=== PATIENT | female | born 1960 | race Caucasian/White ===

== ENCOUNTER 2017-05-26 18:27 | Inpatient (IN) | payer BC, OTHER ==
[~2017-05-26] VITALS: Ht 165.1 cm; Wt 85.8 kg
[2017-05-26] MEDS ORDERED: OMEP40CA2 PO (18:39)
[2017-05-26] MEDS ORDERED: LORA1TAB12 PO (18:39)
[2017-05-26] MEDS ORDERED: HYDR200T3 PO (18:39)
[2017-05-26] MEDS ORDERED: SERT-138 PO (18:39)
[2017-05-26] MEDS ORDERED: ROSU20TA PO (18:39)
[2017-05-26] MEDS ORDERED: ONDANSETRON 4MG/2ML VIAL (J2405) IV ONE (19:45)
[2017-05-26] MEDS ORDERED: NS 1,000 ML IV ONE (19:45)
[2017-05-26] MEDS: MORPHINE 4 MG/ML 1ML SYRINGE IV PRN ×2 (19:50→22:34)
[2017-05-26 20:01] LABS: BASO # 0.1 10^3/uL (0.0-0.2); BASO % 0.4 % (0.0-1.0); EOS # 0.1 10^3/uL (0.0-0.50); EOS % 0.3 % (0.0-3.0); IMMATURE GRANULOCYTE % 0.5 % (0-0); LYMPH # 2.5 10^3/uL (1.5-4.5); LYMPH % 13.6 % (24.0-44.0); MEAN CORPUSCULAR HEMOGLOBIN 29.3 pg (27.0-33.0); MEAN CORPUSCULAR HGB CONC 33.9 g/dl (32.0-36.5); MEAN CORPUSCULAR VOLUME 86.5 fl (80.0-96.0); MONO # 0.6 10^3/uL (0.0-0.8); MONO % 3.4 % (0.0-5.0); NEUTROPHILS # 15.1 10^3/uL (1.8-7.7); NEUTROPHILS % 81.8 % (36.0-66.0); PLATELET COUNT, AUTOMATED 280 10^3/uL (150-450); RED CELL DISTRIBUTION WIDTH 12.8 % (11.5-14.5); WHITE BLOOD COUNT 18.4 10^3/uL (4.0-10.0)
[2017-05-26 20:25] LABS: ALBUMIN 4.6 GM/DL (3.2-5.2); ALBUMIN/GLOBULIN RATIO 1.48 (1.00-1.93); ALKALINE PHOSPHATASE 117 U/L (45-117); ALT/SGPT 25 U/L (12-78); ANION GAP 8 MEQ/L (8-16); AST/SGOT 15 U/L (7-37); BILIRUBIN,DIRECT < 0.1 MG/DL (0.0-0.2); BILIRUBIN,TOTAL 0.4 MG/DL (0.2-1.0); BLOOD UREA NITROGEN 17 MG/DL (7-18); CALCIUM LEVEL 9.4 MG/DL (8.5-10.1); CARBON DIOXIDE LEVEL 27 MEQ/L (21-32); CHLORIDE LEVEL 102 MEQ/L (98-107); GLOMERULAR FILTRATION RATE > 60.0 (>51); GLUCOSE, FASTING 156 MG/DL (70-105); SODIUM LEVEL 137 MEQ/L (136-145); TOTAL PROTEIN 7.7 GM/DL (6.4-8.2)
[2017-05-26] MEDS ORDERED: metroNIDAZOLE 500 MG in APPROPRIATE DILUENT 1 EA IV ONE (22:15)
[2017-05-26] MEDS ORDERED: CIPROFLOXACIN 400 MG in APPROPRIATE DILUENT 1 EA IV ONE (22:15)
[2017-05-26] MEDS ORDERED: ACETAMINOPHEN TAB 650MG DOSE (2X325MG) PO PRN (22:30)
[2017-05-26] MEDS ORDERED: ONDANSETRON 4MG/2ML VIAL (J2405) IV PRN (22:30)
[2017-05-26] MEDS ORDERED: ADDE30CA3 PO (22:35)
[2017-05-27] VITALS: BP 122/67
[2017-05-27] MEDS: LR 1,000 ML IV SCH ×3 (01:33→19:27)
[2017-05-27] MEDS: NORCO, ANEXSIA 5/325MG TABLET (HYDROcodone/ACETAMINOPHEN) PO PRN ×4 (01:35→19:31)
[2017-05-27] MEDS: metroNIDAZOLE 500 MG in APPROPRIATE DILUENT 1 EA IV SCH ×3 (05:45→21:40)
[2017-05-27 06:54] LABS: BASO % 0.5 % (0.0-1.0); EOS # 0.2 10^3/uL (0.0-0.50); EOS % 1.7 % (0.0-3.0); IMMATURE GRANULOCYTE % 0.2 % (0-0); LYMPH # 3.1 10^3/uL (1.5-4.5); LYMPH % 35.2 % (24.0-44.0); MEAN CORPUSCULAR HGB CONC 33.1 g/dl (32.0-36.5); MEAN CORPUSCULAR VOLUME 87.7 fl (80.0-96.0); MONO # 0.7 10^3/uL (0.0-0.8); MONO % 7.6 % (0.0-5.0); NEUTROPHILS # 4.8 10^3/uL (1.8-7.7); NEUTROPHILS % 54.8 % (36.0-66.0); PLATELET COUNT, AUTOMATED 226 10^3/uL (150-450); RED CELL DISTRIBUTION WIDTH 12.9 % (11.5-14.5); WHITE BLOOD COUNT 8.8 10^3/uL (4.0-10.0)
[2017-05-27 07:20] LABS: ALBUMIN/GLOBULIN RATIO 1.42 (1.00-1.93); ALKALINE PHOSPHATASE 90 U/L (45-117); ALT/SGPT 20 U/L (12-78); ANION GAP 7 MEQ/L (8-16); AST/SGOT 12 U/L (7-37); BILIRUBIN,TOTAL 0.4 MG/DL (0.2-1.0); BLOOD UREA NITROGEN 11 MG/DL (7-18); CALCIUM LEVEL 8.2 MG/DL (8.5-10.1); CARBON DIOXIDE LEVEL 29 MEQ/L (21-32); CHLORIDE LEVEL 107 MEQ/L (98-107); GLOMERULAR FILTRATION RATE > 60.0 (>51); GLUCOSE, FASTING 99 MG/DL (70-105); POTASSIUM SERUM 3.9 MEQ/L (3.5-5.1); SODIUM LEVEL 143 MEQ/L (136-145)
[2017-05-27 07:44] LABS: ALBUMIN 3.4 GM/DL (3.2-5.2)
[2017-05-27 07:45] LABS: TOTAL PROTEIN 5.8 GM/DL (6.4-8.2)
[2017-05-27 08:00] VITALS: BP 99/50
[2017-05-27] MEDS: SENOKOT S TAB PO SCH ×2 (08:33→21:40)
[2017-05-27] MEDS: PANTOPRAZOLE 40MG INJ (PROTONIX) (C9113) IV SCH (08:33)
[2017-05-27] MEDS: ENOXAPARIN 40 MG/0.4 ML SYRINGE (J1650) SC SCH (08:35)
[2017-05-27] MEDS: CIPROFLOXACIN 400 MG in APPROPRIATE DILUENT 1 EA IV SCH ×2 (11:33→23:47)
[2017-05-27] MEDS ORDERED: LORazepam 1 MG TAB PO PRN (12:00)
[2017-05-27] MEDS: PROMETHAZINE INJ 25 MG/ML VIAL (J2550) IV PRN ×2 (12:47→21:46)
[2017-05-27] MEDS ORDERED: SERTRALINE HCL 50 MG TAB PO ONE (13:00)
[2017-05-27] MEDS: ROSUVASTATIN 10 MG TAB (CRESTOR) PO SCH (14:20)
[2017-05-27] MEDS: HYDROXYCHLOROQUINE 200 MG TAB PO SCH ×2 (14:21→21:40)
--- NOTE | 2017-05-27 15:07 | HPEPDOC ---
General Surgery H&P Date of Admission May 26, 2017 Attending Physician: VOLODYMYR JARRETT MD History and Physical CHIEF COMPLAINT: Right upper quadrant pain HISTORY OF PRESENT ILLNESS: Patient presents to the emergency department with one-day history of ongoing epigastric and later on right upper quadrant pain and discomfort with nausea and vomiting. Patient reports that she has had intermittent episodes of nausea, vomiting, diarrhea for the past year at least and previous studies have shown cholelithiasis for which she was seen by a surgeon that suggested watchful waiting at that time as her symptoms, the surgeon felt was not of definite biliary origin. This episode started about noon and Monday. She felt well when she woke up and started having mid epigastric abdominal discomfort that later localized and became sharp over the right upper quadrant area, followed by nausea and about 2-3 episodes of vomiting. Patient also reports passage of loose stools. Severity of the pain is worse than her usual attacks. She presented to the emergency department and was worked up and is highly suspected to have cholecystitis. Us and asked to attend to her.. HOME MEDICATIONS: Please see below. PAST MEDICAL HISTORY: Systemic lupus erythematosus Obstructive sleep apnea Hypertension Attention deficit disorder Gastroesophageal reflux disease Low back pain Depression Anxiety Hypercholesterolemia PAST SURGICAL HISTORY: Knee surgery Finger surgery Sinus surgery PERSONAL/SOCIAL HISTORY: Former smoker, denies significant, daily alcohol use, denies recreational drug use REVIEW OF SYSTEMS: GENERAL: Denies chills, fatigue, fever, weight gain and weight loss. HEENT: Denies blurred vision and double vision. Denies ear symptoms. Denies hoarseness. NECK: Denies any neck pain. CARDIOVASCULAR: Denies chest pain and palpitations. MUSCULOSKELETAL: Reports chronic history of SLE, main manifestation his small joint pain. SKIN: Denies rash. NEUROLOGIC: Denies headache, stroke and transient ischemic attack. PSYCHIATRIC: Reports anxiety and depression. Reports ADD on medication ENDOCRINE: Denies thyroid disease. HEMATOLOGY/ONCOLOGY: Denies any bleeding or clotting disorder. HEART: Denies any chest pains, palpitations, paroxysmal dyspnea, orthopnea. PULMONARY: Denies chronic cough, dyspnea and wheezing. GASTROINTESTINAL: Denies rectal bleeding, family history of colon cancer, constipation, diarrhea, dysphagia, heartburn and jaundice. She has had previous colonoscopy for colorectal cancer screening.Found to have some diverticulosis GENITOURINARY: Denies dysuria, frequency, hematuria and nocturia. ENDOCRINE: Denies polydipsia, polyphagia, polyuria, heat or cold intolerance. INFECTIOUS: Denies any recent upper respiratory tract infection, UTI, need for use of antibiotics. NUTRITION: Reports good appetite. PHYSICAL EXAMINATION: VITAL SIGNS: Please see below. GENERAL APPEARANCE: Mildly uncomfortable especially with moving, otherwise does not seem to be in any acute distress. HEENT: Normocephalic, atraumatic. [place] palpebral conjunctivae. Anicteric sclerae. Lips moist. CHEST: No chest wall abnormalities. Normal respiratory motion/effort. NECK: Supple. No thyromegaly. No lymphadenopathies. LUNGS: Lung sounds are clear to auscultation bilaterally. No wheezing appreciated. HEART: No chest wall abnormalities. Heart rate and rhythm are regular with no murmurs. ABDOMEN: Soft, round, minimally distended abdomen with mild tenderness on the epigastric and right upper quadrant area with mild guarding. Nontender anywhere else. No surgical scars. No umbilical or groin herniations. No masses appreciated. SKIN: Warm, moist. EXTREMITIES: Extremities have no deformities. No edema identified. NEUROLOGICAL: Awake, alert, oriented ANCILLARIES: LABORATORY DATA: Please see below. MICROBIOLOGY: Please see below. IMAGING: Right upper quadrant ultrasound Cholelithiasis, mild gallbladder wall thickening, stone at the neck of the gallbladder IMPRESSION AND PLAN: Cholelithiasis with acute cholecystitis She has significant pain lasting more than 6 hours, he has a ptosis to 18,000 and tenderness over the right upper quadrant area consistent with acute cholecystitis. She was admitted in the emergency room and started on IV antibiotics and place him I'll rest with improvement of her symptoms. She also does give a history of chronic intermittent epigastric pain consistent with biliary colic type pain. At this time as she has improved a spoke to her about her options. We can schedule her for laparoscopic cholecystectomy during this admission or discharge her when she is able to tolerate food and perform interval cholecystectomy usually within 3-6 weeks. After modeling the pros and cons of each decision, patient has agreed to undergo cholecystectomy during this admission. He will start her on clear liquids in the morning and advance this as tolerated and plan for cholecystectomy and Monday. Vital Signs Vital Signs Date Time Temp Pulse Resp B/P (MAP) Pulse Ox O2 Delivery O2 Flow Rate FiO2 05/27/17 12:43 18 05/27/17 08:00 98.9 90 99/50 (66) 100 Room Air I&Os I&O- Last 24 Hours up to 6 AM 05/28/17 06:00 Intake Total 600 ml Output Total 600 ml Balance 0 ml Laboratory Data Labs 24H Laboratory Tests 2 05/26/17 19:52: Immature Granulocyte % (Auto) 0.5H, White Blood Count 18.4H, Red Blood Count 5.05, Hemoglobin 14.8, Hematocrit 43.7, Mean Corpuscular Volume 86.5, Mean Corpuscular Hemoglobin 29.3, Mean Corpuscular Hemoglobin Concent 33.9, Red Cell Distribution Width 12.8, Platelet Count 280, Neutrophils (%) (Auto) 81.8H, Lymphocytes (%) (Auto) 13.6L, Monocytes (%) (Auto) 3.4, Eosinophils (%) (Auto) 0.3, Basophils (%) (Auto) 0.4, Neutrophils # (Auto) 15.1H, Lymphocytes # (Auto) 2.5, Monocytes # (Auto) 0.6, Eosinophils # (Auto) 0.1, Basophils # (Auto) 0.1, Immature Granulocyte # (Auto) 0.1H, Nucleated Red Blood Cells % (auto) 0.0, Anion Gap 8, Glomerular Filtration Rate > 60.0, Calcium Level 9.4, Aspartate Amino Transf (AST/SGOT) 15, Alanine Aminotransferase (ALT/SGPT) 25, Alkaline Phosphatase 117, Total Bilirubin 0.4, Direct Bilirubin < 0.1, Total Protein 7.7 , Albumin 4.6, Albumin/Globulin Ratio 1.48, Lipase 218 05/26/17 21:19: Urine Appearance CLEAR, Urine Color YELLOW, Urine pH 6.0, Urine Specific [place] 1.012, Urine Protein NEGATIVE, Urine Glucose (UA) NEGATIVE, Urine Ketones NEGATIVE, Urine Urobilinogen 0.2, Urine Bilirubin NEGATIVE, Urine Leukocyte Esterase TRACEH, Urine Blood NEGATIVE, Urine Nitrite NEGATIVE, Urine WBC (Auto) 2, Urine RBC (Auto) 2, Urine Hyaline Casts (Auto) 0, Urine Bacteria ( Auto) NEGATIVE, Urine Squamous Epithelial Cells 0, Urine Sperm (Auto) 05/27/17 06:27: Immature Granulocyte % (Auto) 0.2H, White Blood Count 8.8, Red Blood Count 4.31 , Hemoglobin 12.5#, Hematocrit 37.8, Mean Corpuscular Volume 87.7, Mean Corpuscular Hemoglobin 29.0, Mean Corpuscular Hemoglobin Concent 33.1, Red Cell Distribution Width 12.9, Platelet Count 226, Neutrophils (%) (Auto) 54.8, Lymphocytes (%) (Auto) 35.2, Monocytes (%) (Auto) 7.6H, Eosinophils (%) (Auto) 1.7, Basophils (%) (Auto) 0.5, Neutrophils # (Auto) 4.8, Lymphocytes # (Auto) 3.1, Monocytes # (Auto) 0.7, Eosinophils # (Auto) 0.2, Basophils # (Auto) 0.0, Immature Granulocyte # (Auto) 0.0, Nucleated Red Blood Cells % (auto) 0.0, Anion Gap 7L, Glomerular Filtration Rate > 60.0, Calcium Level 8.2L, Aspartate Amino Transf (AST/SGOT) 12, Alanine Aminotransferase (ALT/SGPT) 20, Alkaline Phosphatase 90, Total Bilirubin 0.4, Total Protein 5.8#L, Albumin 3.4#, Albumin/ Globulin Ratio 1.42, Blood Urea Nitrogen 11, Creatinine 0.70, Sodium Level 143, Potassium Level 3.9, Chloride Level 107, Carbon Dioxide Level 29 CBC/BMP Laboratory Tests 05/26/17 19:52 Red Blood Count 5.05, Mean Corpuscular Volume 86.5, Mean Corpuscular Hemoglobin 29.3, Mean Corpuscular Hemoglobin Concent 33.9, Red Cell Distribution Width 12.8 , Neutrophils (%) (Auto) 81.8 H, Lymphocytes (%) (Auto) 13.6 L, Monocytes (%) ( Auto) 3.4, Eosinophils (%) (Auto) 0.3, Basophils (%) (Auto) 0.4, Neutrophils # ( Auto) 15.1 H, Lymphocytes # (Auto) 2.5, Monocytes # (Auto) 0.6, Eosinophils # ( Auto) 0.1, Basophils # (Auto) 0.1 05/27/17 06:27 Red Blood Count 4.31, Mean Corpuscular Volume 87.7, Mean Corpuscular Hemoglobin 29.0, Mean Corpuscular Hemoglobin Concent 33.1, Red Cell Distribution Width 12.9 , Neutrophils (%) (Auto) 54.8, Lymphocytes (%) (Auto) 35.2, Monocytes (%) (Auto ) 7.6 H, Eosinophils (%) (Auto) 1.7, Basophils (%) (Auto) 0.5, Neutrophils # ( Auto) 4.8, Lymphocytes # (Auto) 3.1, Monocytes # (Auto) 0.7, Eosinophils # (Auto ) 0.2, Basophils # (Auto) 0.0, Calcium Level 8.2 L, Aspartate Amino Transf (AST/ SGOT) 12, Alanine Aminotransferase (ALT/SGPT) 20, Alkaline Phosphatase 90, Total Bilirubin 0.4, Total Protein 5.8 #L, Albumin 3.4 # Home Medications Scheduled Amphetamine/Dextroamphetamine (Adderall Xr 30 mg) 1 Cap Cap, 1 CAP PO DAILY, ( Reported) Hydroxychloroquine Sulfate (Hydroxychloroquine Sulfat) 200 Mg Tab, 200 MG PO BID , (Reported) Omeprazole (Omeprazole) 40 Mg Cap, 40 MG PO DAILY, (Reported) Rosuvastatin Calcium (Rosuvastatin Calcium) 20 Mg Tab, 20 MG PO DAILY, (Reported ) Sertraline HCl (Sertraline HCl) 100 Mg Tab, 150 MG PO DAILY, (Reported) Scheduled PRN Lorazepam (Lorazepam) 1 Mg Tab, 1 MG PO Q12H PRN for ANXIETY, (Reported) Allergies Coded Allergies: Naproxen (Verified Allergy, Unknown, 05/26/17) Penicillins (Unverified Allergy, Unknown, SWELLING, 10/23/12) VOLODYMYR JARRETT MD May 27, 2017 15:07
[2017-05-27 16:00] VITALS: BP 124/67
[2017-05-27 20:30] VITALS: BP 131/61
[2017-05-27 23:58] VITALS: BP 97/55
[2017-05-28] MEDS: NORCO, ANEXSIA 5/325MG TABLET (HYDROcodone/ACETAMINOPHEN) PO PRN (04:09)
[2017-05-28] MEDS: metroNIDAZOLE 500 MG in APPROPRIATE DILUENT 1 EA IV SCH ×3 (05:23→23:16)
[2017-05-28 06:52] LABS: BASO # 0.1 10^3/uL (0.0-0.2); BASO % 0.8 % (0.0-1.0); EOS # 0.2 10^3/uL (0.0-0.50); EOS % 2.7 % (0.0-3.0); IMMATURE GRANULOCYTE % 0.2 % (0-0); LYMPH # 2.8 10^3/uL (1.5-4.5); LYMPH % 42.8 % (24.0-44.0); MEAN CORPUSCULAR HEMOGLOBIN 28.9 pg (27.0-33.0); MEAN CORPUSCULAR HGB CONC 32.4 g/dl (32.0-36.5); MEAN CORPUSCULAR VOLUME 89.2 fl (80.0-96.0); MONO # 0.5 10^3/uL (0.0-0.8); MONO % 6.8 % (0.0-5.0); NEUTROPHILS # 3.1 10^3/uL (1.8-7.7); NEUTROPHILS % 46.7 % (36.0-66.0); PLATELET COUNT, AUTOMATED 218 10^3/uL (150-450); RED CELL DISTRIBUTION WIDTH 13.1 % (11.5-14.5); WHITE BLOOD COUNT 6.6 10^3/uL (4.0-10.0)
[2017-05-28 07:27] LABS: ALBUMIN 3.2 GM/DL (3.2-5.2); ALBUMIN/GLOBULIN RATIO 1.33 (1.00-1.93); ALKALINE PHOSPHATASE 89 U/L (45-117); ALT/SGPT 20 U/L (12-78); ANION GAP 7 MEQ/L (8-16); AST/SGOT 9 U/L (7-37); BILIRUBIN,TOTAL 0.4 MG/DL (0.2-1.0); BLOOD UREA NITROGEN 7 MG/DL (7-18); CALCIUM LEVEL 8.2 MG/DL (8.5-10.1); CARBON DIOXIDE LEVEL 29 MEQ/L (21-32); CHLORIDE LEVEL 109 MEQ/L (98-107); CREATININE FOR GFR 0.65 MG/DL (0.55-1.02); GLOMERULAR FILTRATION RATE > 60.0 (>51); GLUCOSE, FASTING 88 MG/DL (70-105); POTASSIUM SERUM 3.8 MEQ/L (3.5-5.1); SODIUM LEVEL 145 MEQ/L (136-145); TOTAL PROTEIN 5.6 GM/DL (6.4-8.2)
[2017-05-28 08:00] VITALS: BP 134/82
[2017-05-28] MEDS: SENOKOT S TAB PO SCH ×2 (08:35→20:21)
[2017-05-28] MEDS: ROSUVASTATIN 10 MG TAB (CRESTOR) PO SCH (08:35)
[2017-05-28] MEDS: LORazepam 0.5 MG TAB PO PRN ×2 (08:35→23:44)
[2017-05-28] MEDS: SERTRALINE HCL 50 MG TAB PO SCH (08:35)
[2017-05-28] MEDS: HYDROXYCHLOROQUINE 200 MG TAB PO SCH ×2 (08:35→20:21)
[2017-05-28] MEDS: ENOXAPARIN 40 MG/0.4 ML SYRINGE (J1650) SC SCH (08:36)
[2017-05-28] MEDS: PANTOPRAZOLE 40MG INJ (PROTONIX) (C9113) IV SCH (08:36)
[2017-05-28] MEDS: CIPROFLOXACIN 400 MG in APPROPRIATE DILUENT 1 EA IV SCH (10:54)
[2017-05-28 16:00] VITALS: BP 114/58
[2017-05-28 20:00] VITALS: BP 123/63
[2017-05-28] MEDS: ADDERALL 30 MG PO SCH (20:20)
[2017-05-29] VITALS (8 sets, daily range): BP systolic 112–157; BP diastolic 58–88
[2017-05-29] MEDS: CIPROFLOXACIN 400 MG in APPROPRIATE DILUENT 1 EA IV SCH ×2 (01:23→11:49)
[2017-05-29] MEDS: NORCO, ANEXSIA 5/325MG TABLET (HYDROcodone/ACETAMINOPHEN) PO PRN ×3 (01:58→23:37)
[2017-05-29] MEDS: metroNIDAZOLE 500 MG in APPROPRIATE DILUENT 1 EA IV SCH ×2 (06:16→14:06)
[2017-05-29 07:03] LABS: BASO % 0.6 % (0.0-1.0); EOS # 0.2 10^3/uL (0.0-0.50); EOS % 3.2 % (0.0-3.0); IMMATURE GRANULOCYTE % 0.2 % (0-0); LYMPH # 2.9 10^3/uL (1.5-4.5); LYMPH % 44.6 % (24.0-44.0); MEAN CORPUSCULAR HEMOGLOBIN 29.5 pg (27.0-33.0); MEAN CORPUSCULAR HGB CONC 33.4 g/dl (32.0-36.5); MEAN CORPUSCULAR VOLUME 88.3 fl (80.0-96.0); MONO # 0.5 10^3/uL (0.0-0.8); MONO % 7.2 % (0.0-5.0); NEUTROPHILS # 2.9 10^3/uL (1.8-7.7); NEUTROPHILS % 44.2 % (36.0-66.0); PLATELET COUNT, AUTOMATED 227 10^3/uL (150-450); RED CELL DISTRIBUTION WIDTH 12.9 % (11.5-14.5); WHITE BLOOD COUNT 6.5 10^3/uL (4.0-10.0)
[2017-05-29 07:32] LABS: ALBUMIN 3.3 GM/DL (3.2-5.2); ALBUMIN/GLOBULIN RATIO 1.27 (1.00-1.93); ALKALINE PHOSPHATASE 88 U/L (45-117); ALT/SGPT 20 U/L (12-78); ANION GAP 7 MEQ/L (8-16); AST/SGOT 10 U/L (7-37); BILIRUBIN,TOTAL 0.4 MG/DL (0.2-1.0); BLOOD UREA NITROGEN 10 MG/DL (7-18); CARBON DIOXIDE LEVEL 30 MEQ/L (21-32); CHLORIDE LEVEL 108 MEQ/L (98-107); GLOMERULAR FILTRATION RATE > 60.0 (>51); GLUCOSE, FASTING 92 MG/DL (70-105); POTASSIUM SERUM 3.7 MEQ/L (3.5-5.1); SODIUM LEVEL 145 MEQ/L (136-145); TOTAL PROTEIN 5.9 GM/DL (6.4-8.2)
--- NOTE | 2017-05-29 07:52 | REPUSA ---
Ultrasound of the gallbladder Clinical history: pain. Findings: The pancreas is limited in visualization secondary to overlying bowel gas, but appears grossly unrema rkable. The liver demonstrates uniform echotexture and echogenicity, with no mass lesions. The gallbl adder demonstrates at least three mobile gallstones. There is no gallbladder wall thickening. The com mon bile duct measures 4 mm and is within normal limits. There is no ascites. The right kidney measur es 11 cm in length and is unremarkable. Impression: No acute findings. Cholelithiasis, without evidence of acute cholecystitis.
[2017-05-29] MEDS: ADDERALL 30 MG PO SCH (08:46)
[2017-05-29] MEDS: HYDROXYCHLOROQUINE 200 MG TAB PO SCH (08:47)
[2017-05-29] MEDS: ROSUVASTATIN 10 MG TAB (CRESTOR) PO SCH (08:47)
[2017-05-29] MEDS: SERTRALINE HCL 50 MG TAB PO SCH (08:48)
[2017-05-29] MEDS: SENOKOT S TAB PO SCH ×2 (08:48→20:13)
[2017-05-29] MEDS: PANTOPRAZOLE 40MG INJ (PROTONIX) (C9113) IV SCH (08:49)
[2017-05-29] MEDS: ENOXAPARIN 40 MG/0.4 ML SYRINGE (J1650) SC SCH (08:51)
[2017-05-29] MEDS ORDERED: BUPIVACAINE HCL 0.25% 30 ML VIAL As Ordered ONE (14:00)
[2017-05-29] MEDS ORDERED: LIDOCAINE 1% SDV INJ 30 ML VIAL As Ordered ONE (14:00)
[2017-05-29] MEDS ORDERED: fentaNYL 100 MCG/2 ML INJECTION (J3010) As Ordered ONE ×2 (15:56→17:18)
[2017-05-29] MEDS ORDERED: PROPOFOL 200 MG/20 ML VIAL As Ordered ONE (15:56)
[2017-05-29] MEDS ORDERED: dexameTHASONE 4 MG/ML 1ML VIAL (J1100) As Ordered ONE (15:56)
[2017-05-29] MEDS ORDERED: ROCURONIUM BROMIDE 50 MG/5 ML VIAL As Ordered ONE (15:56)
[2017-05-29] MEDS ORDERED: MIDAZOLAM INJ 2 MG/2 ML VIAL (J2250) As Ordered ONE (15:56)
[2017-05-29] MEDS ORDERED: METOCLOPRAMIDE INJ 10MG/2ML VIAL (J2765) As Ordered ONE (15:56)
[2017-05-29] MEDS ORDERED: HYDROmorphone HCL 2 MG/ML 1ML VIAL (J1170) As Ordered ONE (16:09)
[2017-05-29] MEDS ORDERED: LIDOCAINE PRES-FREE 2% 10ML AMP As Ordered ONE (16:11)
[2017-05-29] MEDS ORDERED: NEOSTIGMINE 10 MG/10 ML VIAL (J2710) As Ordered ONE ×2 (16:13→17:01)
[2017-05-29] MEDS ORDERED: GLYCOPYRROLATE INJ 0.2 MG/ML 2 ML VIAL As Ordered ONE ×2 (16:13→17:01)
--- NOTE | 2017-05-29 17:14 | ROOPDOC ---
[facility] Report Of Operation Report of Operation DATE OF PROCEDURE: 05/29/17 PREPROCEDURE DIAGNOSES: Acute Cholecystitis. POSTPROCEDURE DIAGNOSES: Acute Cholecystitis. PROCEDURE: Laparoscopic Cholecystectomy. SURGEON: Tej Shipman MD [employer]INTENANCE TECHNICIAN: ANESTHESIA: general anesthesia. ESTIMATED BLOOD LOSS: Approximately 50 mL. COMPLICATIONS: slight capsular tear on medial side of gallbladder bed, surgicel and krista left at liver bed. REMARKS: 56 F with sudden onset of abdominal pain over right upper quadrant area noted to have cholecystitis on US. PROCEDURE NOTE: distended gallbladder, mild pericholecystic edema of the wall.. DESCRIPTION OF PROCEDURE: Patient has been receiving ciprofloxacin and metronidazole IV on scheduled doses since admission for acute cholecystitis. She was brought to the operating room, laid supine on the table, compression boots placed for DVT prophylaxis. General endotracheal anesthesia started. Her abdomen then prepped and draped in usual sterile fashion. Surgical timeout was performed prior to starting surgery. Entry into the abdomen done through an incision above the umbilicus. A Veress needle was inserted with a controlled fashion. CO2 insufflation started to pressure 15 mmHg. Using the same incision a 5 mm Visiport was placed under direct vision laparoscope. The area underneath the insertion site was inspected and no injury found. She was then placed in steep reverse Trendelenburg. Her right side was tilted up to further expose the gallbladder. Under direct vision a 11 mm epigastric port and 25 mm working ports placed along the right subcostal line. Operative findings: Her liver is noted to be smooth in contour no nodularities or lesions found, mildly fatty replaced. Her gallbladder is distended, mildly thickened, with small amount of pericholecystic wall edema consistent with acute cholecystitis. There is a small amount of serous fluid at the right upper quadrant area. The fundus of the gallbladder was grasped and the gallbladder was elevated superiorly exposing the neck of the gallbladder. The peritoneum overlying the area was opened up and dissected free both anteriorly and posteriorly to help with retraction of the gallbladder. The hepatocystic triangle was approached and dissected using a [place] and instrument. The cystic duct was identified coming off from the next gallbladder this was circumferentially dissected. The cystic artery was identified in its usual position medially behind a small lymph node of [place]. This was similarly circumferentially dissected off surrounding adipose tissue. We continued posterior dissection proximally at the next gallbladder until a critical view of safety was achieved whereby only the previously identified duct and artery coursing through the neck the gallbladder. At this point the cystic artery was clipped 4 times and divided. After again checking her anatomy and verifying that the previously identified cystic duct, this was also clipped 4 times and divided. The rest of the gallbladder was then dissected free of the gallbladder bed using Bovie cautery. There was moderate bleeding at the lateral gallbladder attachments to the liver capsule, S2 was a small tear in the capsule while pulling on the gallbladder. This was initially controlled with Bovie cautery but there continues to be small amount of oozing. Again left Surgicel at the area. The gallbladder was then placed in an Endo Catch bag and retrieved outside through the epigastric port site. On reinsufflation and inspected the clips and noted this to be in place. No further bleeding noted. No bile leakage noted. I placed Krista hemostatic powder at the area where there was capsular tear. The abdomen was deflated all ports were removed. The epigastric fascial defect repaired with 0 Vicryl in a mattress fashion. Rest of the skin incisions closed with 4-0 Monocryl in subcuticular fashion. Steri-Strips and gauze dressings were placed, the wound. Patient was informed they awakened, extubated and brought to recovery room stable VOLODYMYR SHIPMAN MD May 29, 2017 17:14
[2017-05-29] MEDS: fentaNYL 100 MCG/2 ML INJECTION (J3010) IV PRN ×4 (17:21→17:38)
[2017-05-29] MEDS ORDERED: PERCOCET 5MG/325MG TAB PO PRN (17:30)
[2017-05-29] MEDS ORDERED: ONDANSETRON 4MG/2ML VIAL (J2405) IV PRN (17:30)
[2017-05-29] MEDS ORDERED: LR 1,000 ML IV SCH (17:30)
[2017-05-29] MEDS ORDERED: PERCOCET 5MG/325MG TAB As Ordered ONE (17:32)
[2017-05-29] MEDS ORDERED: ONDANSETRON 4MG/2ML VIAL (J2405) As Ordered ONE (17:34)
[2017-05-29] MEDS: MORPHINE 4 MG/ML 1ML SYRINGE IV PRN (20:19)
[2017-05-30] VITALS: BP 127/70
[2017-05-30] MEDS: MORPHINE 4 MG/ML 1ML SYRINGE IV PRN ×3 (01:33→17:07)
[2017-05-30 04:00] VITALS: BP 119/58
[2017-05-30] MEDS: NORCO, ANEXSIA 5/325MG TABLET (HYDROcodone/ACETAMINOPHEN) PO PRN ×2 (06:32→12:47)
[2017-05-30 06:57] LABS: BASO % 0.2 % (0.0-1.0); EOS % 0.1 % (0.0-3.0); IMMATURE GRANULOCYTE % 0.3 % (0-0); LYMPH # 1.6 10^3/uL (1.5-4.5); LYMPH % 15.5 % (24.0-44.0); MEAN CORPUSCULAR HEMOGLOBIN 29.1 pg (27.0-33.0); MEAN CORPUSCULAR HGB CONC 33.2 g/dl (32.0-36.5); MEAN CORPUSCULAR VOLUME 87.7 fl (80.0-96.0); MONO # 0.6 10^3/uL (0.0-0.8); NEUTROPHILS # 8.1 10^3/uL (1.8-7.7); NEUTROPHILS % 77.9 % (36.0-66.0); PLATELET COUNT, AUTOMATED 231 10^3/uL (150-450); RED CELL DISTRIBUTION WIDTH 12.6 % (11.5-14.5); WHITE BLOOD COUNT 10.4 10^3/uL (4.0-10.0)
[2017-05-30 07:22] LABS: ALBUMIN 3.4 GM/DL (3.2-5.2); ALBUMIN/GLOBULIN RATIO 1.17 (1.00-1.93); ALKALINE PHOSPHATASE 90 U/L (45-117); ALT/SGPT 46 U/L (12-78); ANION GAP 5 MEQ/L (8-16); AST/SGOT 44 U/L (7-37); BILIRUBIN,TOTAL 0.3 MG/DL (0.2-1.0); BLOOD UREA NITROGEN 7 MG/DL (7-18); CALCIUM LEVEL 8.7 MG/DL (8.5-10.1); CARBON DIOXIDE LEVEL 31 MEQ/L (21-32); CHLORIDE LEVEL 105 MEQ/L (98-107); CREATININE FOR GFR 0.63 MG/DL (0.55-1.02); GLOMERULAR FILTRATION RATE > 60.0 (>51); GLUCOSE, FASTING 123 MG/DL (70-105); SODIUM LEVEL 141 MEQ/L (136-145); TOTAL PROTEIN 6.3 GM/DL (6.4-8.2)
[2017-05-30 08:00] VITALS: BP 115/55
[2017-05-30] MEDS: SERTRALINE HCL 50 MG TAB PO SCH (08:38)
[2017-05-30] MEDS: ROSUVASTATIN 10 MG TAB (CRESTOR) PO SCH (08:38)
[2017-05-30] MEDS: ADDERALL 30 MG PO SCH (08:40)
[2017-05-30 12:00] VITALS: BP 139/64
[2017-05-30] MEDS ORDERED: NORCOTAB PO (16:49)
--- NOTE | 2017-06-26 11:12 | DS.PDOC ---
Discharge Summary General Date of Admission May 26, 2017 at 22:28 Date of Discharge 05/30/2017 Attending Physician: VOLODYMYR JARRETT MD Discharge Summary PROCEDURES PERFORMED DURING STAY: Laparoscopic cholecystectomy (05/29/2017. ADMITTING DIAGNOSES: 1. Cholelithiasis with acute cholecystitis DISCHARGE DIAGNOSES: 1. Acute cholecystitis status post lap risk of cholecystectomy COMPLICATIONS/CHIEF COMPLAINT: Acute Cholecystitis. HISTORY OF PRESENT ILLNESS: See HPI. HOSPITAL COURSE: Patient presented herself to the emergency room 05/26/2017 with roughly 6 hours history of ongoing abdominal discomfort and pain located on her epigastric and right upper quadrant area she was noted to have tenderness over the right upper quadrant area her white cell count is elevated to 18.4 her LFTs are normal on presentation. Her ultrasound shows evidence for beginning acute cholecystitis with presence of cholelithiasis at the next the gallbladder. She was admitted under my service. I kept her nothing by mouth and started her ciprofloxacin and metronidazole. She shows some gradual improvement regarding her pain and discomfort but the discomfort never really went away. Her leukocytosis resolved. Her LFTs remained normal. With this she was brought to the operating room for laparoscopic cholecystectomy. This was done on 2016. She successfully underwent the surgery. She tolerated procedure well. Her discomfort improved. She was able to tolerate clear liquids right after the surgery and the following day had regular diet without any increased discomfort. Her post operative LFTs shows stable bilirubin her AST is mildly elevated to 44. WBC mildly elevated at 10.4. She was seen the following day markedly improved. She was stable throughout her postoperative course and she was subsequently discharged home after she tolerated her diet. DISCHARGE MEDICATIONS: Please see below. ALLERGIES: Please see below. PHYSICAL EXAMINATION ON DISCHARGE: VITAL SIGNS: Please see below. GENERAL: Comfortable HEENT: Anicteric sclerae NECK: Supple, no jugular venous distention CARDIOVASCULAR EXAMINATION: Regular heart rate and rhythm RESPIRATORY EXAMINATION: Clear breath sounds to auscultation bilaterally ABDOMINAL EXAMINATION: Round, soft, minimally distended. Port site incisions are clean, dry, intact. Mild residual discomfort on deep palpation at the right upper quadrant area without any rebound or guarding EXTREMITIES: No edema SKIN: Noted jaundice NEUROLOGICAL EXAMINATION: Awake, alert, oriented PSYCHIATRIC EXAMINATION: Within affect is normal. LABORATORY DATA: Please see below. IMAGING: Gallbladder ultrasound PROGNOSIS: Good. Symptoms improved ACTIVITY: Light activity 2 weeks. DIET: Low-fat diet. DISCHARGE PLAN: And discharge home, follow up with me in 2 weeks' time DISPOSITION: 01 Home, Self-Care. DISCHARGE INSTRUCTIONS: 1. May shower 48 hours after surgery. 2. May remove the top gauze dressings prior to shower. Leave Steri-Strips for 1 week. 3. Pat incisions until dry. ITEMS TO FOLLOWUP ON ON OUTPATIENT: 1. Pathology results. DISCHARGE CONDITION: Stable. TIME SPENT ON DISCHARGE: Greater than 30 minutes. Discharge Medications Scheduled Amphetamine/Dextroamphetamine (Adderall Xr 30 mg) 1 Cap Cap, 1 CAP PO DAILY, ( Reported) Hydroxychloroquine Sulfate (Hydroxychloroquine Sulfat) 200 Mg Tab, 200 MG PO BID , (Reported) Omeprazole (Omeprazole) 40 Mg Cap, 40 MG PO DAILY, (Reported) Rosuvastatin Calcium (Rosuvastatin Calcium) 20 Mg Tab, 20 MG PO DAILY, (Reported ) Sertraline HCl (Sertraline HCl) 100 Mg Tab, 150 MG PO DAILY, (Reported) Scheduled PRN Acetaminophen/Hydrocodone ([place], [place] 5/325) 1 Tab Tab, 1-2 TAB PO Q4HP PRN for PAIN Lorazepam (Lorazepam) 1 Mg Tab, 1 MG PO Q12H PRN for ANXIETY, (Reported) Allergies Coded Allergies: Naproxen (Verified Allergy, Unknown, 05/26/17) Penicillins (Unverified Allergy, Unknown, SWELLING, 10/23/12) VOLODYMYR JARRETT MD Jun 26, 2017 11:12
== END 2017-05-30 17:48 | disposition home or self-care (01) | DRG 263 ==
LOC: M ED 18:27 → M ED INP 22:28 → M PED 23:55
PROVIDERS: ADMIT Surgery; ATTEND Surgery
PROC: 0FT44ZZ Resection of Gallbladder, Percutaneous Endoscopic Approach (ICD-10-PCS; principal; 2017-05-29 16:50)
DX: K80.00 Calculus of gallbladder with acute cholecystitis without obstruction (principal); E78.00 Pure hypercholesterolemia, unspecified; F98.8 Other specified behavioral and emotional disorders with onset usually occurring in childhood and adolescence; K21.9 Gastro-esophageal reflux disease without esophagitis; Z87.891 Personal history of nicotine dependence; Z79.899 Other long term (current) drug therapy; Z88.0 Allergy status to penicillin; Z88.6 Allergy status to analgesic agent; K91.71 Accidental puncture and laceration of a digestive system organ or structure during a digestive system procedure

== ENCOUNTER → 2017-06-08 | Outpatient (CLI) | payer BC, OTHER ==
[~2017-06-08] MED LIST: ADDE30CA3 PO; HYDR200T3 PO; LORA1TAB12 PO; NORCOTAB PO; OMEP40CA2 PO; ROSU20TA PO; SERT-138 PO
[2017-06-08 16:30] LABS: BASO # 0.1 10^3/uL (0.0-0.2); BASO % 0.6 % (0.0-1.0); EOS # 0.2 10^3/uL (0.0-0.50); EOS % 2.8 % (0.0-3.0); IMMATURE GRANULOCYTE % 0.2 % (0-0); LYMPH # 2.9 10^3/uL (1.5-4.5); LYMPH % 33.3 % (24.0-44.0); MEAN CORPUSCULAR HEMOGLOBIN 28.7 pg (27.0-33.0); MEAN CORPUSCULAR HGB CONC 32.7 g/dl (32.0-36.5); MEAN CORPUSCULAR VOLUME 87.7 fl (80.0-96.0); MONO # 0.6 10^3/uL (0.0-0.8); MONO % 6.4 % (0.0-5.0); NEUTROPHILS # 4.9 10^3/uL (1.8-7.7); NEUTROPHILS % 56.7 % (36.0-66.0); PLATELET COUNT, AUTOMATED 338 10^3/uL (150-450); RED CELL DISTRIBUTION WIDTH 12.3 % (11.5-14.5); WHITE BLOOD COUNT 8.6 10^3/uL (4.0-10.0)
[2017-06-08 18:34] LABS: ALBUMIN 3.9 GM/DL (3.2-5.2); ALBUMIN/GLOBULIN RATIO 1.08 (1.00-1.93); ALKALINE PHOSPHATASE 139 U/L (45-117); ALT/SGPT 39 U/L (12-78); ANION GAP 8 MEQ/L (8-16); AST/SGOT 15 U/L (7-37); BILIRUBIN,TOTAL 0.3 MG/DL (0.2-1.0); BLOOD UREA NITROGEN 20 MG/DL (7-18); CALCIUM LEVEL 8.9 MG/DL (8.5-10.1); CARBON DIOXIDE LEVEL 30 MEQ/L (21-32); CHLORIDE LEVEL 103 MEQ/L (98-107); CREATININE FOR GFR 0.62 MG/DL (0.55-1.02); GLOMERULAR FILTRATION RATE > 60.0 (>51); GLUCOSE, FASTING 110 MG/DL (70-105); POTASSIUM SERUM 4.3 MEQ/L (3.5-5.1); SODIUM LEVEL 141 MEQ/L (136-145); TOTAL PROTEIN 7.5 GM/DL (6.4-8.2)
== END ==
LOC: M LAB 16:02
PROVIDERS: ATTEND Surgery
DX: R19.7 Diarrhea, unspecified (principal); R11.2 Nausea with vomiting, unspecified

== ENCOUNTER → 2017-06-10 | Outpatient (REF) | payer BC, OTHER | LOC: M LAB REF 13:06 | PROVIDERS: ATTEND Surgery | DX: R19.7 Diarrhea, unspecified (principal); R11.2 Nausea with vomiting, unspecified ==

== ENCOUNTER → 2018-07-04 | Outpatient (REF) | payer BC, OTHER ==
[2018-07-04 18:47] LABS: FOLATE 14.8 NG/ML; FREE T4 0.91 NG/DL (0.76-1.46); RHEUMATOID FACTOR QUANT < 10.0 IU/ML (<15.0); TOTAL PROTEIN 7.2 GM/DL (6.4-8.2); VITAMIN B12 LEVEL 432 PG/ML
[2018-07-04 19:04] LABS: ESTIMATED AVERAGE GLUCOSE 126 MG/DL (60-110)
[2018-07-04 20:15] LABS: ERYTHROCYTE SEDIMENTATION RATE 6 mm/hr (0-30)
[2018-07-05 11:08] LABS: ALBUMIN 4.49 GM/DL (3.29-5.55); ALBUMIN % 62.4 % (55.8-66.1); ALPHA-1-GLOBULIN % 4.4 % (2.9-4.9); ALPHA-1-GLOBULINS 0.32 GM/DL (0.17-0.41); ALPHA-2-GLOBULINS 0.69 GM/DL (0.42-0.99); ALPHA-2-GLOBULINS % 9.6 % (7.1-11.8); BETA-1-GLOBULINS 0.48 GM/DL (0.28-0.60); BETA-1-GLOBULINS % 6.7 % (4.7-7.2); BETA-2-GLOBULINS 0.39 GM/DL (0.19-0.55); BETA-2-GLOBULINS % 5.4 % (3.2-6.5); GAMMA GLOBULIN % 11.5 % (11.1-18.8)
[2018-07-05 11:09] LABS: GAMMA GLOBULINS 0.83 GM/DL (0.65-1.58)
[2018-07-10 11:56] LABS: PTT LUPUS TYPE ANTICOAG SCREEN 0.9 (0-1.2)
[2018-07-12 14:15] LABS: ANTINUCLEAR ANTIBODIES DIRECT Negative (Negative); VITAMIN B1 LEVEL WHOLE BLOOD 120.9 nmol/L (66.5-200.0); VITAMIN E(ALPHA TOCOPHEROL) 12.4 mg/L (7.0-25.1); VITAMIN E(GAMMA TOCOPHEROL) 1.7 mg/L (0.5-5.5)
== END ==
LOC: M LABNEURO 11:50
DX: G43.909 Migraine, unspecified, not intractable, without status migrainosus (principal); M54.2 Cervicalgia; M54.5 Low back pain
CPT/HCPCS: 82746

== ENCOUNTER → 2018-09-25 | Outpatient (REF) | payer BC, OTHER ==
[~2018-09-25] MED LIST changes: -ROSU20TA PO; +ROSU20TA4 PO
[2018-09-25 17:15] LABS: BLOOD UREA NITROGEN 16 MG/DL (7-18); CREATININE FOR GFR 0.82 MG/DL (0.55-1.30); GLOMERULAR FILTRATION RATE > 60.0 (>51)
== END ==
LOC: M LABNEURO 15:57
PROVIDERS: ATTEND Psychiatry & Neurology Neurology
DX: I10 Essential (primary) hypertension (principal)

== ENCOUNTER → 2018-10-08 | Outpatient (CLI) | payer BC, OTHER ==
--- NOTE | 2018-10-10 01:49 | ECWPNPC ---
PATIENT NAME: MADELEINE PERDUE : 1960 GENDER: FEMALE VISIT DATE: 10/08/2018 DISCHARGE DATE: 10/08/18 1319 VISIT LOCKED DATE TIME: PHYSICIAN: SADAF AGUAYO RESOURCE: SADAF AGUAYO REASON FOR APPOINTMENT 1. NECK AND LUMBAR PAIN HISTORY OF PRESENT ILLNESS FALL RISK SCREENING: SCREENING : NO FALLS IN THE PAST YEAR. 57 YEAR OLD FEMALE WITH HX OF NECK PAIN,DAILY HEADACHES, NUMBNESS BOTH ARMS AND HANDS LOW BACK PAIN FOR SEVERAL YEARS.HAS HX OF LUPUS.SHE IS NOT TAKING ANY ANTICOGAULANTS. 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 WOULD LIKE TO DISCUSS PROCEDURE. PAIN SCREENING: PATIENT HAS A COMPLAINT OF ACUTE OR CHRONIC PAIN :YES CURRENT MEDICATIONS TAKING ZOLOFT 100 MG TABLET 1 TABLET ORALLY ONCE A DAY TAKING ZOLOFT 50 MG TABLET 1 TABLET ORALLY ONCE A DAY TAKING PLAQUENIL 200 MG TABLET 2 TABLETS WITH FOOD OR MILK ORALLY ONCE A DAY TAKING VERAPAMIL HCL 120 MG TABLET 1 TABLET ORALLY ONCE A DAY TAKING IBUPROFEN 800 MG TABLET 1 TABLET WITH FOOD OR MILK NEEDED ORALLY THREE TIMES A DAY TAKING LORAZEPAM 1 MG TABLET 1 TABLET ORALLY EVERY 12 HOURS NEEDED TAKING RIZATRIPTAN BENZOATE 10 MG TABLET 1 TABLET NEEDED ONE TIME ORALLY AT ONSET OF MIGRAINE MAY REPEAT IN 2 HOURS TAKING DOXYCYCLINE MONOHYDRATE 100 MG TABLET 1 TABLET ORALLY BID X 10 DAYS TAKING ROSUVASTATIN CALCIUM 20 MG TABLET 1 TABLET ORALLY ONCE A DAY TAKING ADDERALL XR 30 MG CAPSULE EXTENDED RELEASE 24 HOUR 1 CAPSULE IN THE MORNING ORALLY ONCE A DAY TAKING SERTRALINE HCL 100 MG TABLET 1 TABLET ORALLY ONCE A DAY TAKING EXCEDRIN MIGRAINE 250-250-65 MG TABLET 2 TABLETS ORALLY AT ONSET ON MIGRAINES WITH RIZATRIPTAN TAKING ZONISAMIDE 100 MG CAPSULE 1 CAPSULE ORALLY TWICE A DAY TAKING BUPROPION HCL ER (SR) 150 MG TABLET EXTENDED RELEASE 12 HOUR 1 TABLET IN THE MORNING ORALLY ONCE A DAY MEDICATION LIST REVIEWED AND RECONCILED WITH THE PATIENT PAST MEDICAL HISTORY MIGRAINE HEADACHES BACK AND NECK PAIN BILATERAL SHOULDER PAIN- RIGHT GREATER WITH ARM PAIN 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 AND 2014 FAMILY HISTORY FATHER: 63 YRS, COPD ASTHMA CHF, DIAGNOSED WITH OTHER MOTHER: , MULTIPLE MYLOMA, DIABETES, HYPERTENSION, CANCER SIBLINGS: , BOTH OF [place] BROTHER-LIVING -PROSTATE CA, HYPERTENSION, HIGH CHOLESTEROL SISTERS-LIVING- HIGH CHOLESTEROL, HYPERTENSION DAUGHTER(S): ALIVE, ONE DAUGHTER- COLON CA, CANCER 3DAUGHTER(S) . SOCIAL HISTORY GENERAL: TOBACCO USE ARE YOU A:FORMER SMOKER HOW LONG HAS IT BEEN SINCE YOU LAST SMOKED?> 10 YEARS LATEX QUESTIONNAIRE LATEX ALLERGY : HAVE YOU EVER DEVELOPED ANY TYPE OF REACTION AFTER HANDLING LATEX PRODUCTS SUCH RUBBER GLOVES, CONDOMS, DIAPHRAGMS, BALLOONS, SOCKS, OR UNDERWEAR?NO LATEX ALLERGY : HAVE YOU EVER DEVELOPED ANY TYPE OF REACTION DURING OR AFTER DENTAL APPOINTMENT, VAGINAL/RECTAL EXAMINATION, SURGICAL PROCEDURE, OR ANY OTHER EXPOSURE?NO LATEX RISK : HAVE YOU EVER HAD ANY DIFFICULTY BREATHING OR HIVES AFTER EATING OR HANDLING ANY FRUITS, OR VEGETABLES; SUCH KIWI, BANANAS, STONE FRUITS, OR CHESTNUTSNO LATEX RISK : DO YOU HAVE A PREVIOUS PERSONAL HISTORY OF MORE THAN NINE SURGERIES, SPINA BIFIDA, OR REPEATED CATHERTIZATIONS? NO LATEX RISK : ARE YOU FREQUENTLY EXPOSED TO LATEX PRODUCTS IN YOUR OCCUPATION?NO DATE ASKED : 10/08/2018 ALCOHOL SCREENING DID YOU HAVE A DRINK CONTAINING ALCOHOL IN THE PAST YEAR?NO POINTS0 INTERPRETATIONNEGATIVE RECREATIONAL DRUG USE DRUG USE?NO CAFFEINE CAFFEINE USE?YES HOW OFTEN AND HOW MUCH? 1 CUP COFFEE/DAY MU-ISM [id number] UAT[employer]IN LANGUAGE LANGUAGES SPOKEN:DANISH EDUCATION LEVEL OF EDUCATION:NOT FINISHED COLLEGE LEARNING BARRIERS / SPECIAL NEEDS BARRIERS TO LEARNING?YES COMMENTS DOESN'T REMEMBER THINGS AFTER SHE READS IT HEARING IMPAIRED?YES : TERRILBLE RINGING IN HER EARS THAT CONTINUES TO GET LOUDER VISION IMPAIRED?YES :CORRECTIVE LENSES COGNITIVELY IMPAIRED?NO READINESS TO LEARN?YES LEARNING PREFERENCES?YES :DEMONSTRATION/VERBAL INSTRUCTION LEARNING CAPABILITIES PRESENT?YES EMOTIONAL BARRIERS?NO SPECIAL DEVICES?NO BOAT AND PLANT UTILITY SUPERVISOR NEEDED?NO DOMESTIC VIOLENCE DO YOU FEEL SAFE IN YOUR ENVIRONMENT?YES OCCUPATION: WORKS AT [employer]. PAIN CLINIC PFS, CLERGY, PUBLIC HEALTH REFERRALS PFS REFERRAL NEEDED?NO CLERGY REFERRAL NEEDED?NO PUBLIC HEALTH REFERRAL NEEDED?NO WAS THE PROVIDER NOTIFIED OF ANY PERTINENT INFO? N/A HAS THE PATIENT BEEN EDUCATED REGARDING HIS/HER PLAN OF CARE?YES HAS THE PATIENT BEEN EDUCATED REGARDING PAIN, THE RISK FOR PAIN, THE IMPORTANCE OF EFFECTIVE PAIN MANAGEMENT, AND THE PAIN ASSESSMENT PROCESS?YES ADVANCE DIRECTIVE ADVANCE DIRECTIVE DISCUSSED WITH PATIENT:YES 10/08/18 PT DOES NOT HAVE ANY ADVANCED DIRECTIVES. INFORAMATION ON HCP GIVEN TO AND HELP OFFERED IN COMPLETING IT IF NEEDED. AD HOSPITALIZATION/MAJOR DIAGNOSTIC PROCEDURE CHILD SURGERY REVIEW OF SYSTEMS REVIEWED BY: PROVIDER: ESTEBAN Reyes CONSTITUTIONAL: ANY CHANGE IN YOUR MEDICAL CONDITION? YES, FOUND PITUITARY TUMOR WITH MRI OF BRAIN WITHOUT CONTRAST DONE 08/31/[address] MCMAHON. MRI WITH CONTRAST DONE 09/27/18, GOES 10/24/18 FOR RESULTS . CHILLS NO . FEVER NO . INFECTION: DO YOU HAVE NEW INFECTIONS? YES, SINUS INFECTION DIAGNOSED ON FRI- ON ANTIBIOTIC . DO YOU HAVE HISTORY OF MRSA? NO . MUSCULOSKELETAL: ANY NEW PATTERNS OF PAIN OR NUMBNESS? YES, NUMBNESS BOTH HANDS . SYTEMIC LUPUS YES . GASTROENTEROLOGY: ANY NEW CHANGE IN BOWEL CONTROL? NO . BARRETTS ESOPHAGUS NO . CIRRHOSIS NO . HEPATITIS NO . LIVER FAILURE NO . ACID REFLUX NO . UNEXPLAINED WEIGHT LOSS NO . GENITOURINARY: ANY NEW CHANGE IN BLADDER CONTROL? YES, DOESN'T HAVE GOOD BLADDER CONTROL . IS THERE A CHANCE YOU COULD BE ? NO . HEMATOLOGY/LYMPH: DO YOU TAKE ANY BLOOD THINNERS? (FOR EXAMPLE- COUMADIN, PLAVIX, AGGRENOX, PLATEL, PRADAXA, OR XARELTO) NO . WHEN WAS YOUR LAST DOSE? DATE: TIME: . LOW PLATELET COUNT NO . SICKLE CELL DISEASE NO . VON WILLIEBRANDS NO . FACTOR V LEIDEN NO . THALLASEMIA NO . ANEMIA NO . EASY BRUISING NO . NEUROLOGY: HAVE YOU FALLEN IN THE PAST 12 MONTHS? YES, STATES SHE FALLS OFTEN, JUST LOSES HER BALANCE. HIT HER HEAD HARD IN JANUARY. STATES SHE HAS A HARD TIME WITH BALANCE. . ANY NEW EXTREMITY NUMBNESS OR WEAKNESS? NO . HEAD INJURY YES, 01/2018 FROM FALL . DEMENTIA NO . CEREBRAL PALSY NO . MULTIPLE SCLEROSIS NO . DIZZINESS INTERMITTENT, WORSE WHEN SHE CLOSES HER EYES . HEADACHE HISTORY OF MIGRAINES . STROKES NO . VERTIGO YES, SENSATION OF IMBALANCE . CARDIOLOGY: DO YOU HAVE A PACEMAKER OR DEFIBRILLATOR? NO . ANGINA NO . HEART ATTACK NO . HEART SURGERY NO . CONGESTIVE HEART FAILURE/FLUID OVERLOAD NO . CHEST PAIN NO . HIGH BLOOD PRESSURE NO . IRREGULAR HEART BEAT NO . RESPIRATORY: HAVE YOU BEEN SICK IN THE PAST WEEK? YES, SINUS INFECTION . FEVER NO . FLU LIKE SYMPTOMS? NO . CPAP NO BUT HAS ELBA SHE HAS A NEW ONE COMING . BYPAP NO . ASTHMA YES . EMPHYSEMA NO . CHRONIC LUNG DISEASES NO . SHORTNESS OF BREATH ON EXERTION YES SEES DR. DOBBS . COUGH NO . SNORING YES OCCASSIONALLY . INTEGUMENTARY: DO YOU HAVE ANY RASHES OR OPEN SORES? NO . ALLERGIC/IMMUNO: ARE YOU ALLERGIC TO IV DYE? NO . ANY NEW ALLERGIES? NO . PSYCHIATRIC: DO YOU HAVE THOUGHTS OF HURTING YOURSELF OR SOMEONE ELSE? NO . ARE YOU ABUSED, NEGLECTED, OR IN AN UNSAFE ENVIRONMENT? NO . ENDOCRINOLOGY: ARE YOU DIABETIC? NO . THYROID DISORDER NO . OTHER: DO YOU NEED ANY PRESCRIPTIONS? NO . IF YES, PLEASE LIST: ____ . ANY NEW PROBLEMS WITH YOUR MEDICATIONS? NO . WHEN DID YOU LAST EAT? ____ . WHEN DID YOU LAST DRINK? ____ . WHAT DID YOU LAST DRINK? ____ . NAME OF PERSON DRIVING YOU HOME? ____ . DO YOU HAVE ANY OTHER QUESTIONS OR CONCERNS NO WANTS PAIN RELIEF FROM UMBEARABLE PAIN IN HEAD, SHOULDERS, TO BE ABLE TO FUNCTION-TO THINKS AND TO BE CONTRUCTIVE ON A DAILY BASIS. . VITAL SIGNS WT 195.8 LBS, HT 54 IN, BMI 47.20 INDEX, BP 150/78 MM HG, HR 101 /MIN, RR 18 /MIN, TEMP 97.0 F, OXYGEN SAT % 98%, SAFE IN ENV? (Y/N) Y, NA INITIALS [id number], REVIEWED BY: [email or web address]. EXAMINATION GENERAL EXAMINATION: GENERAL APPEARANCE:NO ACUTE DISTRESS, WELL NOURISHED AND HYDRATED. PSYCHAPPROPRIATE MOOD AND AFFECT . HEENT:EOMI, NO SCLERAL ICTERUS, NARES PATENT, ORAL MUCOSA MOIST. FACE:UNREMARKABLE. NECK: NORMAL ALIGNMENT, NO SCARS OR MASESS. LIMITED ROTATION TO RIGHT, LIMITED ROTATION TO LEFT, , PAIN WITH ROTATION BILATERALLY. LUNGS:CLEAR TO AUSCULTATION BILATERALLY, NO WHEEZES, RHONCHI, RALES. HEART:NO MURMURS, REGULAR RATE AND RHYTHM. MUSCULOSKELETAL:NORMAL RANGE OF MOTION. LUMBAR SACRAL SPINE MUSCLE STRENGTH TESTING 5/5 BILATERAL. NORMAL SPINE ALIGNMENT. SLR NEG BILAT REFLEXES 2+. ASSESSMENTS CERVICAL SPONDYLOSIS WITH RADICULOPATHY - M47.22 (PRIMARY) LOW BACK PAIN WITHOUT SCIATICA, UNSPECIFIED BACK PAIN LATERALITY, UNSPECIFIED CHRONICITY - M54.5 CHRONIC NONINTRACTABLE HEADACHE, UNSPECIFIED HEADACHE TYPE - R51 SYSTEMIC LUPUS ERYTHEMATOSUS, UNSPECIFIED SLE TYPE, UNSPECIFIED ORGAN INVOLVEMENT STATUS - M32.9 DYSTHYMIA - F34.1 TREATMENT CERVICAL SPONDYLOSIS WITH RADICULOPATHY NOTES: LUMBAR EPIDURAL INJECTION: RECOVERY AT HOME MATERIAL WAS PRINTED,CERVICAL EPIDURAL INJECTION: YOUR EXPERIENCE MATERIAL WAS PRINTED,CERVICAL EPIDURAL INJECTION MATERIAL WAS PRINTED. CLINICAL NOTES: [facility] _ DISCUSSED WITH PATIENT AND .BOTH AGREED TO PROCEED WITH [facility]COLN. . PREVENTIVE MEDICINE PAIN CLINIC TEACHING: PROCEDURE TEACHING PRINTED INFORMATION ON CERVICAL EPIDURAL GIVEN TO AND REVIEWED WITH PT ALONG WITH PRE-PROCEDURE INSTRUCTIONS AND PT. VERBALIZED UNDERSTANDING ON BOTH. THE LUMBAR EPIDURAL PRINTED INFORMATION WAS NOT GIVEN TO PT. STATED UNDER TREATMENT. AD. PROCEDURE CODES FA211 ESTABILISHED PATIENT [facility] CHARGE DISPOSITION & COMMUNICATION FOLLOW UP POST PROCEDURE (REASON: [facility] ) ELECTRONICALLY SIGNED BY MATT OLVERA ON 10/09/2018 AT 08:31 AM EDT ADDENDUM: 10/09/2018 08:51 AM SADAF AGUAYO > PATIENT SAYS HER MRI SHOWED A PITUIATARY TUMOUR. SHE HAS A FURTHER CT OF BRAIN BUT NO RESULTS AVAILABLE YET. DISCLAIMER : THIS IS A VISIT SUMMARY EXTRACTED FROM THE [employer] CHART. IT IS NOT A COPY OF THE [employer] PROGRESS NOTE. CLEMENTINAD
== END ==
LOC: M PAIN 10:15
PROVIDERS: ATTEND Nurse Practitioner Family
DX: M47.22 Other spondylosis with radiculopathy, cervical region (principal); M54.5 Low back pain; R51 Headache; M32.9 Systemic lupus erythematosus, unspecified; F34.1 Dysthymic disorder; E78.5 Hyperlipidemia, unspecified; G47.33 Obstructive sleep apnea (adult) (pediatric); M19.90 Unspecified osteoarthritis, unspecified site; Z87.891 Personal history of nicotine dependence; E23.7 Disorder of pituitary gland, unspecified; Z88.0 Allergy status to penicillin; Z88.6 Allergy status to analgesic agent; Z86.69 Personal history of other diseases of the nervous system and sense organs; J45.909 Unspecified asthma, uncomplicated; E66.01 Morbid (severe) obesity due to excess calories; Z68.42 Body mass index [BMI] 45.0-49.9, adult; Z79.899 Other long term (current) drug therapy

== ENCOUNTER → 2018-10-18 | Outpatient (CLI) | payer BC, OTHER ==
[~2018-10-18] MED LIST changes: +HYDR-3715 PO; -NORCOTAB PO
--- NOTE | 2018-11-07 01:20 | ECWPNPC ---
PATIENT NAME: MADELEINE PERDUE : 1960 GENDER: FEMALE VISIT DATE: 10/18/2018 DISCHARGE DATE: 10/18/18 0000 VISIT LOCKED DATE TIME: PHYSICIAN: SADAF AGUAYO RESOURCE: SADAF AGUAYO REASON FOR APPOINTMENT 1. NECK & LUMBAR- PER DR Mora HISTORY OF PRESENT ILLNESS HISTORY OF PRESENT ILLNESS: PAIN THE PATIENT DESCRIBES THE PAIN... 58 YR OLD FEMALE WAS SEEN LAST WEEK FOR FIRST APPT. HAS INCEDENTAL FINDING OF PINEAL GLAND ON PITUITARY. PATIE TIS BEING FOLLOWED [place] [facility] AND I SPOKE WITH DR GRIER LAST WEEK AND HE IS SATISFIED THAT THE GLAND/CYST IS STABLE.ALSO SPOKE WITH PCP- SEAN ANDREWS, WHO IS SATISFIED THAT THIS PATIENT CAN HAVE [facility].SHE IS RECOVERING FROM SINUS INFECTION. FALL RISK SCREENING: SCREENING :NO FALLS REPORTED IN THE LAST YEAR CURRENT MEDICATIONS TAKING ZOLOFT 100 MG TABLET 1 TABLET ORALLY ONCE A DAY TAKING ZOLOFT 50 MG TABLET 1 TABLET ORALLY ONCE A DAY TAKING PLAQUENIL 200 MG TABLET 2 TABLETS WITH FOOD OR MILK ORALLY ONCE A DAY TAKING VERAPAMIL HCL 120 MG TABLET 1 TABLET ORALLY ONCE A DAY TAKING IBUPROFEN 800 MG TABLET 1 TABLET WITH FOOD OR MILK NEEDED ORALLY THREE TIMES A DAY TAKING LORAZEPAM 1 MG TABLET 1 TABLET ORALLY EVERY 12 HOURS NEEDED TAKING RIZATRIPTAN BENZOATE 10 MG TABLET 1 TABLET NEEDED ONE TIME ORALLY AT ONSET OF MIGRAINE MAY REPEAT IN 2 HOURS TAKING ROSUVASTATIN CALCIUM 20 MG TABLET 1 TABLET ORALLY ONCE A DAY TAKING ADDERALL XR 30 MG CAPSULE EXTENDED RELEASE 24 HOUR 1 CAPSULE IN THE MORNING ORALLY ONCE A DAY TAKING SERTRALINE HCL 100 MG TABLET 1 TABLET ORALLY ONCE A DAY TAKING EXCEDRIN MIGRAINE 250-250-65 MG TABLET 2 TABLETS ORALLY AT ONSET ON MIGRAINES WITH RIZATRIPTAN TAKING ZONISAMIDE 100 MG CAPSULE 1 CAPSULE ORALLY TWICE A DAY TAKING BUPROPION HCL ER (SR) 150 MG TABLET EXTENDED RELEASE 12 HOUR 1 TABLET IN THE MORNING ORALLY ONCE A DAY NOT-TAKING DOXYCYCLINE MONOHYDRATE 100 MG TABLET 1 TABLET ORALLY BID X 10 DAYS MEDICATION LIST REVIEWED AND RECONCILED WITH THE PATIENT PAST MEDICAL HISTORY MIGRAINE HEADACHES BACK AND NECK PAIN BILATERAL SHOULDER PAIN- RIGHT GREATER WITH ARM PAIN 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 AND 2013 FAMILY HISTORY FATHER: 63 YRS, COPD ASTHMA CHF, DIAGNOSED WITH OTHER MOTHER: , MULTIPLE MYLOMA, DIABETES, HYPERTENSION, CANCER SIBLINGS: , BOTH OF [place]'S BROTHER-LIVING -PROSTATE CA, HYPERTENSION, HIGH CHOLESTEROL SISTERS-LIVING- HIGH CHOLESTEROL, HYPERTENSION DAUGHTER(S): ALIVE, ONE DAUGHTER- COLON CA, CANCER 3DAUGHTER(S) . SOCIAL HISTORY GENERAL: TOBACCO USE ARE YOU A:FORMER SMOKER HOW LONG HAS IT BEEN SINCE YOU LAST SMOKED?> 10 YEARS LATEX QUESTIONNAIRE LATEX ALLERGY : HAVE YOU EVER DEVELOPED ANY TYPE OF REACTION AFTER HANDLING LATEX PRODUCTS SUCH RUBBER GLOVES, CONDOMS, DIAPHRAGMS, BALLOONS, SOCKS, OR UNDERWEAR?NO LATEX ALLERGY : HAVE YOU EVER DEVELOPED ANY TYPE OF REACTION DURING OR AFTER DENTAL APPOINTMENT, VAGINAL/RECTAL EXAMINATION, SURGICAL PROCEDURE, OR ANY OTHER EXPOSURE?NO LATEX RISK : HAVE YOU EVER HAD ANY DIFFICULTY BREATHING OR HIVES AFTER EATING OR HANDLING ANY FRUITS, OR VEGETABLES; SUCH KIWI, BANANAS, STONE FRUITS, OR CHESTNUTSNO LATEX RISK : DO YOU HAVE A PREVIOUS PERSONAL HISTORY OF MORE THAN NINE SURGERIES, SPINA BIFIDA, OR REPEATED CATHERTIZATIONS? NO LATEX RISK : ARE YOU FREQUENTLY EXPOSED TO LATEX PRODUCTS IN YOUR OCCUPATION?NO DATE ASKED : 10/08/2018 ALCOHOL SCREENING DID YOU HAVE A DRINK CONTAINING ALCOHOL IN THE PAST YEAR?NO POINTS0 INTERPRETATIONNEGATIVE RECREATIONAL DRUG USE DRUG USE?NO CAFFEINE CAFFEINE USE?YES HOW OFTEN AND HOW MUCH? 1 CUP COFFEE/DAY SAM[employer]AN [id number] [employer] LANGUAGE LANGUAGES SPOKEN:SLOVENIAN EDUCATION LEVEL OF EDUCATION:NOT FINISHED COLLEGE LEARNING BARRIERS / SPECIAL NEEDS BARRIERS TO LEARNING?YES COMMENTS DOESN'T REMEMBER THINGS AFTER SHE READS IT HEARING IMPAIRED?YES : TERRILBLE RINGING IN HER EARS THAT CONTINUES TO GET LOUDER VISION IMPAIRED?YES :CORRECTIVE LENSES COGNITIVELY IMPAIRED?NO READINESS TO LEARN?YES LEARNING PREFERENCES?YES :DEMONSTRATION/VERBAL INSTRUCTION LEARNING CAPABILITIES PRESENT?YES EMOTIONAL BARRIERS?NO SPECIAL DEVICES?NO MOTOR RUNNER NEEDED?NO DOMESTIC VIOLENCE DO YOU FEEL SAFE IN YOUR ENVIRONMENT?YES OCCUPATION: WORKS AT [email or web address]. PAIN CLINIC PFS, CLERGY, PUBLIC HEALTH REFERRALS PFS REFERRAL NEEDED?NO CLERGY REFERRAL NEEDED?NO PUBLIC HEALTH REFERRAL NEEDED?NO WAS THE PROVIDER NOTIFIED OF ANY PERTINENT INFO?YES N/A HAS THE PATIENT BEEN EDUCATED REGARDING HIS/HER PLAN OF CARE?YES HAS THE PATIENT BEEN EDUCATED REGARDING PAIN, THE RISK FOR PAIN, THE IMPORTANCE OF EFFECTIVE PAIN MANAGEMENT, AND THE PAIN ASSESSMENT PROCESS?YES ADVANCE DIRECTIVE ADVANCE DIRECTIVE DISCUSSED WITH PATIENT:YES PT DOES NOT HAVE ANY ADVANCED DIRECTIVES. INFORAMATION ON HCP GIVEN TO AND HELP OFFERED IN COMPLETING IT IF NEEDED. HOSPITALIZATION/MAJOR DIAGNOSTIC PROCEDURE CHILD SURGERY REVIEW OF SYSTEMS REVIEWED BY: PROVIDER: ESTEBAN . CONSTITUTIONAL: ANY CHANGE IN YOUR MEDICAL CONDITION? NO . CHILLS NO . FEVER NO . INFECTION: DO YOU HAVE NEW INFECTIONS? YES, SINUSITIS RESOLVING . DO YOU HAVE HISTORY OF MRSA? NO . MUSCULOSKELETAL: ANY NEW PATTERNS OF PAIN OR NUMBNESS? NO . GASTROENTEROLOGY: ANY NEW CHANGE IN BOWEL CONTROL? NO . GENITOURINARY: ANY NEW CHANGE IN BLADDER CONTROL? NO . IS THERE A CHANCE YOU COULD BE ? NO . HEMATOLOGY/LYMPH: DO YOU TAKE ANY BLOOD THINNERS? (FOR EXAMPLE- COUMADIN, PLAVIX, AGGRENOX, PLATEL, PRADAXA, OR XARELTO) NO . WHEN WAS YOUR LAST DOSE? DATE: TIME: . NEUROLOGY: HAVE YOU FALLEN IN THE PAST 12 MONTHS? YES, FELL 2 WEEKS AGO FROM LOSS OF BALANCE PT DENIES INJURIES . ANY NEW EXTREMITY NUMBNESS OR WEAKNESS? YES, LEFT ARM PAIN GOING TO HAVE CARPAL TUNNEL RELEASE . CARDIOLOGY: DO YOU HAVE A PACEMAKER OR DEFIBRILLATOR? NO . RESPIRATORY: HAVE YOU BEEN SICK IN THE PAST WEEK? NO . FEVER NO . FLU LIKE SYMPTOMS? NO . COUGH YES, RESOLVED . INTEGUMENTARY: DO YOU HAVE ANY RASHES OR OPEN SORES? NO . ALLERGIC/IMMUNO: ARE YOU ALLERGIC TO IV DYE? NO . ANY NEW ALLERGIES? NO . PSYCHIATRIC: DO YOU HAVE THOUGHTS OF HURTING YOURSELF OR SOMEONE ELSE? NO . ARE YOU ABUSED, NEGLECTED, OR IN AN UNSAFE ENVIRONMENT? NO . ENDOCRINOLOGY: ARE YOU DIABETIC? NO . OTHER: DO YOU NEED ANY PRESCRIPTIONS? NO . IF YES, PLEASE LIST: ____ . ANY NEW PROBLEMS WITH YOUR MEDICATIONS? NO . WHEN DID YOU LAST EAT? ____ . WHEN DID YOU LAST DRINK? ____ . WHAT DID YOU LAST DRINK? ____ . NAME OF PERSON DRIVING YOU HOME? ____ . DO YOU HAVE ANY OTHER QUESTIONS OR CONCERNS NO . VITAL SIGNS WT 197.6 LBS, HT 54 IN, BMI 47.64 INDEX, BP 148/75 MM HG, HR 102 /MIN, RR 16 /MIN, TEMP 97.1 F, OXYGEN SAT % 100%, SAFE IN ENV? (Y/N) Y, NA INITIALS SC 10:45, REVIEWED BY: FADI. EXAMINATION GENERAL EXAMINATION: GENERAL APPEARANCE:NO ACUTE DISTRESS, WELL NOURISHED AND HYDRATED. PSYCHAPPROPRIATE MOOD AND AFFECT . HEENT: NONOSE CLEAR, MAXILLARY TENDERNESS BILATERALLY. LUNGS:CLEAR TO AUSCULTATION BILATERALLY, NO WHEEZES, RHONCHI, RALES. HEART:NO MURMURS, REGULAR RATE AND RHYTHM. ASSESSMENTS LOW BACK PAIN WITHOUT SCIATICA, UNSPECIFIED BACK PAIN LATERALITY, UNSPECIFIED CHRONICITY - M54.5 (PRIMARY) CERVICAL SPONDYLOSIS WITH RADICULOPATHY - M47.22 CHRONIC NONINTRACTABLE HEADACHE, UNSPECIFIED HEADACHE TYPE - R51 TREATMENT LOW BACK PAIN WITHOUT SCIATICA, UNSPECIFIED BACK PAIN LATERALITY, UNSPECIFIED CHRONICITY CLINICAL NOTES: HAS [facility] BOOKED ON 10/30/18. PROCEDURE CODES FA211 ESTABILISHED PATIENT [facility] CHARGE DISPOSITION & COMMUNICATION FOLLOW UP REASON: 10/23/18 [facility] ELECTRONICALLY SIGNED BY MATT OLVERA ON 11/06/2018 AT 10:30 AM EDT DISCLAIMER : THIS IS A VISIT SUMMARY EXTRACTED FROM THE [employer] CHART. IT IS NOT A COPY OF THE [employer] PROGRESS NOTE. SHERYL
== END ==
LOC: M PAIN 10:30
PROVIDERS: ATTEND Nurse Practitioner Family
DX: M54.5 Low back pain (principal); M47.22 Other spondylosis with radiculopathy, cervical region; R51 Headache; E78.5 Hyperlipidemia, unspecified; M32.9 Systemic lupus erythematosus, unspecified; G47.33 Obstructive sleep apnea (adult) (pediatric); E66.01 Morbid (severe) obesity due to excess calories; Z68.42 Body mass index [BMI] 45.0-49.9, adult; Z79.899 Other long term (current) drug therapy; Z88.0 Allergy status to penicillin; Z88.8 Allergy status to other drugs, medicaments and biological substances; Z87.891 Personal history of nicotine dependence

== ENCOUNTER → 2018-10-30 | Outpatient (CLI) | payer BC, OTHER ==
[~2018-10-30] MED LIST changes: +ISOVUE-M 300 61% 15ML VIAL (Q9967) As Ordered ONE; +LIDOCAINE 1% SDV INJ 30 ML VIAL As Ordered ONE; +diazePAM 5 MG TAB As Ordered ONE; +methylPREDNISolone SUSP 40 MG/ML (DEPO-medrol) VIAL (J1030) As Ordered ONE
--- NOTE | 2018-10-30 16:35 | REP ---
Cervical spine: Two views limited study: History: Injection procedure for pain. 11 seconds of fluoroscopy time is reported. Findings: A sequence of two last image hold fluoroscopically obtained spot radiographs of the cervicothoracic junction document needle position and contrast injection associated with cervical epidural steroid injection procedure. Electronically Signed by Davey Ulloa MD 10/30/2018 08:36 P
--- NOTE | 2018-11-12 00:06 | ECWPNPC ---
PATIENT NAME: MADELEINE PERDUE : 1960 GENDER: FEMALE VISIT DATE: 10/30/2018 DISCHARGE DATE: 10/30/18 1223 VISIT LOCKED DATE TIME: PHYSICIAN: PAGE NEWSOME MD RESOURCE: PAGE NEWSOME MD REASON FOR APPOINTMENT 1. [place] HISTORY OF PRESENT ILLNESS HISTORY OF PRESENT ILLNESS: PAIN THE PATIENT DESCRIBES THE PAIN... FALL RISK SCREENING: SCREENING :NO FALLS REPORTED IN THE LAST YEAR CURRENT MEDICATIONS TAKING ZOLOFT 100 MG TABLET 1 TABLET ORALLY ONCE A DAY, NOTES: 10/30/18 AM TAKING ZOLOFT 50 MG TABLET 1 TABLET ORALLY ONCE A DAY, NOTES: 10/29/18 TAKING PLAQUENIL 200 MG TABLET 2 TABLETS WITH FOOD OR MILK ORALLY ONCE A DAY, NOTES: LAST WEEK TAKING VERAPAMIL HCL 120 MG TABLET 1 TABLET ORALLY ONCE A DAY, NOTES: 10/29/18 TAKING IBUPROFEN 800 MG TABLET 1 TABLET WITH FOOD OR MILK NEEDED ORALLY THREE TIMES A DAY, NOTES: NONE LATELY TAKING LORAZEPAM 1 MG TABLET 1 TABLET ORALLY EVERY 12 HOURS NEEDED, NOTES: 10/29/18 TAKING RIZATRIPTAN BENZOATE 10 MG TABLET 1 TABLET NEEDED ONE TIME ORALLY AT ONSET OF MIGRAINE MAY REPEAT IN 2 HOURS, NOTES: NONE LATELY TAKING ROSUVASTATIN CALCIUM 20 MG TABLET 1 TABLET ORALLY ONCE A DAY, NOTES: 10/30/18 TAKING ADDERALL XR 30 MG CAPSULE EXTENDED RELEASE 24 HOUR 1 CAPSULE IN THE MORNING ORALLY ONCE A DAY, NOTES: 10/30/18 AM TAKING EXCEDRIN MIGRAINE 250-250-65 MG TABLET 2 TABLETS ORALLY AT ONSET ON MIGRAINES WITH RIZATRIPTAN, NOTES: NONE LATELY TAKING ZONISAMIDE 100 MG CAPSULE 1 CAPSULE ORALLY TWICE A DAY, NOTES: 10/30/18 AM TAKING BUPROPION HCL ER (SR) 150 MG TABLET EXTENDED RELEASE 12 HOUR 1 TABLET IN THE MORNING ORALLY ONCE A DAY, NOTES: 10/28/18 NOT-TAKING DOXYCYCLINE MONOHYDRATE 100 MG TABLET 1 TABLET ORALLY BID X 10 DAYS DISCONTINUED SERTRALINE HCL 100 MG TABLET 1 TABLET ORALLY ONCE A DAY MEDICATION LIST REVIEWED AND RECONCILED WITH THE PATIENT PAST MEDICAL HISTORY MIGRAINE HEADACHES BACK AND NECK PAIN BILATERAL SHOULDER PAIN- RIGHT GREATER WITH ARM PAIN 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 AND 2013 FAMILY HISTORY FATHER: 63 YRS, COPD ASTHMA CHF, DIAGNOSED WITH OTHER MOTHER: , MULTIPLE MYLOMA, HYPERTENSION, CANCER, DIABETES SIBLINGS: , BOTH OF NH'S BROTHER-LIVING -PROSTATE CA, HYPERTENSION, HIGH CHOLESTEROL SISTERS-LIVING- HIGH CHOLESTEROL, HYPERTENSION DAUGHTER(S): ALIVE, ONE DAUGHTER- COLON CA, CANCER 3DAUGHTER(S) . SOCIAL HISTORY GENERAL: TOBACCO USE ARE YOU A:FORMER SMOKER HOW LONG HAS IT BEEN SINCE YOU LAST SMOKED?> 10 YEARS LATEX QUESTIONNAIRE LATEX ALLERGY : HAVE YOU EVER DEVELOPED ANY TYPE OF REACTION AFTER HANDLING LATEX PRODUCTS SUCH RUBBER GLOVES, CONDOMS, DIAPHRAGMS, BALLOONS, SOCKS, OR UNDERWEAR?NO LATEX ALLERGY : HAVE YOU EVER DEVELOPED ANY TYPE OF REACTION DURING OR AFTER DENTAL APPOINTMENT, VAGINAL/RECTAL EXAMINATION, SURGICAL PROCEDURE, OR ANY OTHER EXPOSURE?NO LATEX RISK : HAVE YOU EVER HAD ANY DIFFICULTY BREATHING OR HIVES AFTER EATING OR HANDLING ANY FRUITS, OR VEGETABLES; SUCH KIWI, BANANAS, STONE FRUITS, OR CHESTNUTSNO LATEX RISK : DO YOU HAVE A PREVIOUS PERSONAL HISTORY OF MORE THAN NINE SURGERIES, SPINA BIFIDA, OR REPEATED CATHERTIZATIONS? NO LATEX RISK : ARE YOU FREQUENTLY EXPOSED TO LATEX PRODUCTS IN YOUR OCCUPATION?NO DATE ASKED : 10/08/2018 ALCOHOL SCREENING DID YOU HAVE A DRINK CONTAINING ALCOHOL IN THE PAST YEAR?NO POINTS0 INTERPRETATIONNEGATIVE RECREATIONAL DRUG USE DRUG USE?NO CAFFEINE CAFFEINE USE?YES HOW OFTEN AND HOW MUCH? 1 CUP COFFEE/DAY JUDAISM [id number] [employer]AP[employer] LANGUAGE LANGUAGES SPOKEN:JORDANIAN EDUCATION LEVEL OF EDUCATION:NOT FINISHED COLLEGE LEARNING BARRIERS / SPECIAL NEEDS BARRIERS TO LEARNING?YES COMMENTS DOESN'T REMEMBER THINGS AFTER SHE READS IT HEARING IMPAIRED?YES : TERRILBLE RINGING IN HER EARS THAT CONTINUES TO GET LOUDER VISION IMPAIRED?YES :CORRECTIVE LENSES COGNITIVELY IMPAIRED?NO READINESS TO LEARN?YES LEARNING PREFERENCES?YES :DEMONSTRATION/VERBAL INSTRUCTION LEARNING CAPABILITIES PRESENT?YES EMOTIONAL BARRIERS?NO SPECIAL DEVICES?NO NUMERICAL CONTROL MACHINE MACHINIST NEEDED?NO DOMESTIC VIOLENCE DO YOU FEEL SAFE IN YOUR ENVIRONMENT?YES OCCUPATION: WORKS AT [employer]. PAIN CLINIC PFS, CLERGY, PUBLIC HEALTH REFERRALS PFS REFERRAL NEEDED?NO CLERGY REFERRAL NEEDED?NO PUBLIC HEALTH REFERRAL NEEDED?NO WAS THE PROVIDER NOTIFIED OF ANY PERTINENT INFO?YES N/A HAS THE PATIENT BEEN EDUCATED REGARDING HIS/HER PLAN OF CARE?YES HAS THE PATIENT BEEN EDUCATED REGARDING PAIN, THE RISK FOR PAIN, THE IMPORTANCE OF EFFECTIVE PAIN MANAGEMENT, AND THE PAIN ASSESSMENT PROCESS?YES ADVANCE DIRECTIVE ADVANCE DIRECTIVE DISCUSSED WITH PATIENT:YES PT DOES NOT HAVE ANY ADVANCED DIRECTIVES. INFORAMATION ON HCP GIVEN TO AND HELP OFFERED IN COMPLETING IT IF NEEDED. HOSPITALIZATION/MAJOR DIAGNOSTIC PROCEDURE CHILD SURGERY REVIEW OF SYSTEMS REVIEWED BY: PROVIDER: . CONSTITUTIONAL: ANY CHANGE IN YOUR MEDICAL CONDITION? NO . CHILLS NO . FEVER NO . INFECTION: DO YOU HAVE NEW INFECTIONS? NO . DO YOU HAVE HISTORY OF MRSA? NO . MUSCULOSKELETAL: ANY NEW PATTERNS OF PAIN OR NUMBNESS? NO . GASTROENTEROLOGY: ANY NEW CHANGE IN BOWEL CONTROL? NO . GENITOURINARY: ANY NEW CHANGE IN BLADDER CONTROL? NO . IS THERE A CHANCE YOU COULD BE ? NO . HEMATOLOGY/LYMPH: DO YOU TAKE ANY BLOOD THINNERS? (FOR EXAMPLE- COUMADIN, PLAVIX, AGGRENOX, PLATEL, PRADAXA, OR XARELTO) NO . WHEN WAS YOUR LAST DOSE? DATE: TIME: . NEUROLOGY: HAVE YOU FALLEN IN THE PAST 12 MONTHS? NO . ANY NEW EXTREMITY NUMBNESS OR WEAKNESS? NO . CARDIOLOGY: DO YOU HAVE A PACEMAKER OR DEFIBRILLATOR? NO . RESPIRATORY: HAVE YOU BEEN SICK IN THE PAST WEEK? NO . FEVER NO . FLU LIKE SYMPTOMS? NO . COUGH NO . INTEGUMENTARY: DO YOU HAVE ANY RASHES OR OPEN SORES? NO . ALLERGIC/IMMUNO: ARE YOU ALLERGIC TO IV DYE? NO . ANY NEW ALLERGIES? NO . PSYCHIATRIC: DO YOU HAVE THOUGHTS OF HURTING YOURSELF OR SOMEONE ELSE? NO . ARE YOU ABUSED, NEGLECTED, OR IN AN UNSAFE ENVIRONMENT? NO . ENDOCRINOLOGY: ARE YOU DIABETIC? NO . OTHER: DO YOU NEED ANY PRESCRIPTIONS? NO . IF YES, PLEASE LIST: ____ . ANY NEW PROBLEMS WITH YOUR MEDICATIONS? NO . WHEN DID YOU LAST EAT? 10/29/18 1830 . WHEN DID YOU LAST DRINK? 10/30/18 0630 . WHAT DID YOU LAST DRINK? JACK LU . NAME OF PERSON DRIVING YOU HOME? ERMELINDA . DO YOU HAVE ANY OTHER QUESTIONS OR CONCERNS NO . VITAL SIGNS WT 198.8 LBS, HT 54 IN, BMI 47.93 INDEX, BP 136/77 MM HG, HR 91 /MIN, RR 16 /MIN, TEMP 97.0 F, OXYGEN SAT % 98%, NA INITIALS SC 09:06, REVIEWED BY: JEFF. ASSESSMENTS CERVICAL DISC DISORDER WITH RADICULOPATHY OF CERVICAL REGION - M50.10 (PRIMARY) PROCEDURES PN CERVICAL EPIDURAL PRE PROCEDURE DIAGNOSIS CERVICAL DISC DISORDER WITH RADICULOPATHY POST PROCEDURE DIAGNOSIS CERVICAL DISC DISORDER WITH RADICULOPATHY PROCEDURE CERVICAL EPIDURAL STEROID INJECTION UNDER FLUOROSCOPIC GUIDANCE SURGEON DR. PAGE NEWSOME DINING ROOM BUSSER NONE ANESTHESIA LOCAL PRE PROCEDURE NOTE THE PATIENT HAS A HISTORY OF CHRONIC CERVICAL PAIN. I EVALUATE THE PATIENT AND REVIEWED THE CHART. I WENT OVER THE RISKS, ALTERNATIVES, AND BENEFITS ASSOCIATED WITH THIS PROCEDURE. THE PATIENT WOULD LIKE TO PROCEED AND GIVE CONSENT TO PERFORMED THE PROCEDURE. THE PATIENT DENIES UNEXPLAINABLE WEIGHT LOSS, FEVER, CHILLS, OR NEW CHANGES IN URINARY OR BOWEL CONTROL DESCRIPTION OF PROCEDURE THE PATIENT WAS BROUGHT TO THE PROCEDURE ROOM AND PLACED IN THE PRONE POSITION. THE CERVICOTHORACIC AREA WAS CLEANED WITH BETADINE SOLUTION AND DRAPED ASEPTICALLY. THE PROCEDURE WAS DONE UNDER STERILE CONDITIONS. I CHECKED LATERALITY AND THE LEVEL WHERE THE PROCEDURE WAS GOING TO BE PERFORMED WITH THE PATIENT AND THE SUPPORTING STAFF AT THE MOMENT OF THE TIME OUT IN THE PROCEDURE ROOM. UNDER FLUOROSCOPIC GUIDANCE, THE TARGET WAS SELECTED AT THE INTERLAMINAR LEVEL OF C7-T1. LIDOCAINE WAS USED TO NUMB THE SKIN AND THE SUBCUTANEOUS TISSUE BELOW IT. EPIDURAL TUOHY NEEDLE 17-GAUGE WAS ADVANCED UNDER FLUOROSCOPIC GUIDANCE AND FOLLOWING PATIENT FEEDBACK UNTIL THE EPIDURAL SPACE WAS REACHED 6 CM DEEP INTO THE SKIN BY THE LOSS OF RESISTANCE TECHNIQUE. ISOVUE M DYE 30%, 0.25 ML, WAS INJECTED SHOWING ADEQUATE SPREAD OF THE DYE. THEN, A SOLUTION OF 3 ML OF NORMAL SALINE WITH DEPO-MEDROL 60 MG WAS INJECTED SLOWLY FOLLOWING PATIENT FEEDBACK. THERE WAS NO EVIDENCE OF BLOOD, PARESTHESIA OR CEREBROSPINAL FLUID DURING THE PROCEDURE. THE PATIENT WAS SENT TO THE RECOVERY ROOM. THE PATIENT WAS MOVING THE EXTREMITIES AND DOING WELL. THERE WAS NO COMPLICATION DURING THE PROCEDURE. FLUOROSCOPY TIME WAS 11 SECONDS POST PROCEDURE NOTE THE PATIENT WILL BE SEEN IN A FOLLOW UP IN THE NEXT FEW WEEKS. INSTRUCTIONS WERE GIVEN, QUESTIONS WERE ANSWERED, AND THE PATIENT EXPRESSED UNDERSTANDING AND AGREES WITH THE PLAN. I, HARMEET ALAS, DOCUMENTED THE ABOVE INFORMATION ACTING A SCRIBE FOR DR. NEWSOME. I HAVE REVIEWED THE ABOVE DOCUMENT, WRITTEN BY HARMEET LATIF AND I VERIFY THAT IT IS ACCURATE. DIAGNOSTIC IMAGING [facility] FLUORO GUIDE SPINE INJECTION (PAIN)[id number] PROCEDURE CODES 6045F RADXPS IN END [id number] PXD [id number] CERVICAL/THORACIC W/ IMAGING DISPOSITION & COMMUNICATION FOLLOW UP 3 WEEKS ELECTRONICALLY SIGNED BY PAGE NEWSOME MD, MD ON 11/11/2018 AT 03:06 PM EDT DISCLAIMER : THIS IS A VISIT SUMMARY EXTRACTED FROM THE [email or web address] CHART. IT IS NOT A COPY OF THE [email or web address] PROGRESS NOTE. MTDD
== END ==
LOC: M PAIN 08:45
PROVIDERS: ATTEND Anesthesiology
DX: G89.29 Other chronic pain (principal); M50.10 Cervical disc disorder with radiculopathy, unspecified cervical region; E78.5 Hyperlipidemia, unspecified; G47.33 Obstructive sleep apnea (adult) (pediatric); G43.909 Migraine, unspecified, not intractable, without status migrainosus; M19.90 Unspecified osteoarthritis, unspecified site; M32.9 Systemic lupus erythematosus, unspecified; E66.01 Morbid (severe) obesity due to excess calories; Z68.42 Body mass index [BMI] 45.0-49.9, adult; Z79.899 Other long term (current) drug therapy; Z88.0 Allergy status to penicillin; Z88.8 Allergy status to other drugs, medicaments and biological substances; Z87.891 Personal history of nicotine dependence
CPT/HCPCS: 62321; J1030; Q9967

== ENCOUNTER → 2018-11-20 | Outpatient (CLI) | payer BC, OTHER ==
[~2018-11-20] MED LIST changes: -ISOVUE-M 300 61% 15ML VIAL (Q9967) As Ordered ONE; -LIDOCAINE 1% SDV INJ 30 ML VIAL As Ordered ONE; -diazePAM 5 MG TAB As Ordered ONE; -methylPREDNISolone SUSP 40 MG/ML (DEPO-medrol) VIAL (J1030) As Ordered ONE
--- NOTE | 2018-12-05 23:50 | ECWPNPC ---
PATIENT NAME: MADELEINE PERDUE : 1960 GENDER: FEMALE VISIT DATE: 11/20/2018 DISCHARGE DATE: 11/20/18 1515 VISIT LOCKED DATE TIME: PHYSICIAN: SUGAR CROFT RESOURCE: SUGAR CROFT REASON FOR APPOINTMENT 1. POST PROC-[place] HISTORY OF PRESENT ILLNESS HISTORY OF PRESENT ILLNESS: HERE FOR POST PROCEDURE F/U.HAD C7/T1 [place] ON 10/30/18.REPORTING SIGNIFICANT REDUCTION IN RIGHT ARM PAIN FREQUENCY AND INTENSITY.REVIEWED MRI C SPINE AND DISCUSSED TREATMENT OPTIONS.RATING PAIN VAS 7/10. PAIN THE PATIENT DESCRIBES THE PAIN... FALL RISK SCREENING: SCREENING :NO FALLS REPORTED IN THE LAST YEAR CURRENT MEDICATIONS TAKING ZOLOFT 100 MG TABLET 1 TABLET ORALLY ONCE A DAY TAKING ZOLOFT 50 MG TABLET 1 TABLET ORALLY ONCE A DAY TAKING VERAPAMIL HCL 120 MG TABLET 1 TABLET ORALLY ONCE A DAY TAKING IBUPROFEN 800 MG TABLET 1 TABLET WITH FOOD OR MILK NEEDED ORALLY THREE TIMES A DAY TAKING LORAZEPAM 1 MG TABLET 1 TABLET ORALLY EVERY 12 HOURS NEEDED TAKING RIZATRIPTAN BENZOATE 10 MG TABLET 1 TABLET NEEDED ONE TIME ORALLY AT ONSET OF MIGRAINE MAY REPEAT IN 2 HOURS TAKING ROSUVASTATIN CALCIUM 20 MG TABLET 1 TABLET ORALLY ONCE A DAY TAKING ADDERALL XR 30 MG CAPSULE EXTENDED RELEASE 24 HOUR 1 CAPSULE IN THE MORNING ORALLY ONCE A DAY TAKING EXCEDRIN MIGRAINE 250-250-65 MG TABLET 2 TABLETS ORALLY AT ONSET ON MIGRAINES WITH RIZATRIPTAN TAKING ZONISAMIDE 100 MG CAPSULE 1 CAPSULE ORALLY TWICE A DAY NOT-TAKING PLAQUENIL 200 MG TABLET 2 TABLETS WITH FOOD OR MILK ORALLY ONCE A DAY, NOTES: NONE RECENT NOT-TAKING BUPROPION HCL ER (SR) 150 MG TABLET EXTENDED RELEASE 12 HOUR 1 TABLET IN THE MORNING ORALLY ONCE A DAY NOT-TAKING DOXYCYCLINE MONOHYDRATE 100 MG TABLET 1 TABLET ORALLY BID X 10 DAYS MEDICATION LIST REVIEWED AND RECONCILED WITH THE PATIENT PAST MEDICAL HISTORY MIGRAINE HEADACHES BACK AND NECK PAIN BILATERAL SHOULDER PAIN- RIGHT GREATER WITH ARM PAIN 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 AND 2014 FAMILY HISTORY FATHER: 63 YRS, COPD ASTHMA CHF, DIAGNOSED WITH OTHER MOTHER: , MULTIPLE MYLOMA, DIABETES, HYPERTENSION, CANCER SIBLINGS: , BOTH OF NC'S BROTHER-LIVING -PROSTATE CA, HYPERTENSION, HIGH CHOLESTEROL SISTERS-LIVING- HIGH CHOLESTEROL, HYPERTENSION DAUGHTER(S): ALIVE, ONE DAUGHTER- COLON CA, CANCER 3DAUGHTER(S) . SOCIAL HISTORY GENERAL: TOBACCO USE ARE YOU A:FORMER SMOKER HOW LONG HAS IT BEEN SINCE YOU LAST SMOKED?> 10 YEARS EDUCATION LEVEL OF EDUCATION:NOT FINISHED COLLEGE LANGUAGE LANGUAGES SPOKEN:[place]TH SUDANESE DOMESTIC VIOLENCE DO YOU FEEL SAFE IN YOUR ENVIRONMENT?YES RECREATIONAL DRUG USE DRUG USE?NO LEARNING BARRIERS / SPECIAL NEEDS BARRIERS TO LEARNING?YES COMMENTS DOESN'T REMEMBER THINGS AFTER SHE READS IT HEARING IMPAIRED?YES : TERRILBLE RINGING IN HER EARS THAT CONTINUES TO GET LOUDER VISION IMPAIRED?YES :CORRECTIVE LENSES COGNITIVELY IMPAIRED?NO READINESS TO LEARN?YES LEARNING PREFERENCES?YES :DEMONSTRATION/VERBAL INSTRUCTION LEARNING CAPABILITIES PRESENT?YES EMOTIONAL BARRIERS?NO SPECIAL DEVICES?NO EMPLOYER RELATIONS REPRESENTATIVE NEEDED?NO PAIN CLINIC PFS, CLERGY, PUBLIC HEALTH REFERRALS PFS REFERRAL NEEDED?NO CLERGY REFERRAL NEEDED?NO PUBLIC HEALTH REFERRAL NEEDED?NO WAS THE PROVIDER NOTIFIED OF ANY PERTINENT INFO?YES N/A HAS THE PATIENT BEEN EDUCATED REGARDING HIS/HER PLAN OF CARE?YES HAS THE PATIENT BEEN EDUCATED REGARDING PAIN, THE RISK FOR PAIN, THE IMPORTANCE OF EFFECTIVE PAIN MANAGEMENT, AND THE PAIN ASSESSMENT PROCESS?YES LATEX QUESTIONNAIRE LATEX ALLERGY : HAVE YOU EVER DEVELOPED ANY TYPE OF REACTION AFTER HANDLING LATEX PRODUCTS SUCH RUBBER GLOVES, CONDOMS, DIAPHRAGMS, BALLOONS, SOCKS, OR UNDERWEAR?NO LATEX ALLERGY : HAVE YOU EVER DEVELOPED ANY TYPE OF REACTION DURING OR AFTER DENTAL APPOINTMENT, VAGINAL/RECTAL EXAMINATION, SURGICAL PROCEDURE, OR ANY OTHER EXPOSURE?NO LATEX RISK : HAVE YOU EVER HAD ANY DIFFICULTY BREATHING OR HIVES AFTER EATING OR HANDLING ANY FRUITS, OR VEGETABLES; SUCH KIWI, BANANAS, STONE FRUITS, OR CHESTNUTSNO LATEX RISK : DO YOU HAVE A PREVIOUS PERSONAL HISTORY OF MORE THAN NINE SURGERIES, SPINA BIFIDA, OR REPEATED CATHERTIZATIONS? NO LATEX RISK : ARE YOU FREQUENTLY EXPOSED TO LATEX PRODUCTS IN YOUR OCCUPATION?NO DATE ASKED : 11/20/2018 CAFFEINE CAFFEINE USE?YES HOW OFTEN AND HOW MUCH? 1 CUP COFFEE/DAY ADVANCE DIRECTIVE ADVANCE DIRECTIVE DISCUSSED WITH PATIENT:YES PT DOES NOT HAVE ANY ADVANCED DIRECTIVES.PT STATES SHE HAS PAPERWORK AT HOME. DECLINES ASSISTANCE WITH FORM. 11/20/18 CONFUCIANIST [id number] YAZIDISM ALCOHOL SCREENING DID YOU HAVE A DRINK CONTAINING ALCOHOL IN THE PAST YEAR?NO POINTS0 INTERPRETATIONNEGATIVE OCCUPATION: WORKS AT [employer]. REVIEWED WITH PATIENT 11/20/18 1435 BV. HOSPITALIZATION/MAJOR DIAGNOSTIC PROCEDURE CHILD SURGERY REVIEW OF SYSTEMS REVIEWED BY: PROVIDER: SUGAR GUTIERREZ . CONSTITUTIONAL: ANY CHANGE IN YOUR MEDICAL CONDITION? YES, PT SCHEDULED TO HAVE CARPAL TUNNEL RELEASE SURGERY ON LEFT HAND ON DECEMBER 03. . CHILLS NO . FEVER NO . INFECTION: DO YOU HAVE NEW INFECTIONS? NO . DO YOU HAVE HISTORY OF MRSA? NO . MUSCULOSKELETAL: ANY NEW PATTERNS OF PAIN OR NUMBNESS? NO . GASTROENTEROLOGY: ANY NEW CHANGE IN BOWEL CONTROL? NO . GENITOURINARY: ANY NEW CHANGE IN BLADDER CONTROL? NO . IS THERE A CHANCE YOU COULD BE ? NO . HEMATOLOGY/LYMPH: DO YOU TAKE ANY BLOOD THINNERS? (FOR EXAMPLE- COUMADIN, PLAVIX, AGGRENOX, PLATEL, PRADAXA, OR XARELTO) NO . WHEN WAS YOUR LAST DOSE? DATE: TIME: . NEUROLOGY: HAVE YOU FALLEN IN THE PAST 12 MONTHS? NO . ANY NEW EXTREMITY NUMBNESS OR WEAKNESS? NO . CARDIOLOGY: DO YOU HAVE A PACEMAKER OR DEFIBRILLATOR? NO . RESPIRATORY: HAVE YOU BEEN SICK IN THE PAST WEEK? NO . FEVER NO . FLU LIKE SYMPTOMS? NO . COUGH NO . INTEGUMENTARY: DO YOU HAVE ANY RASHES OR OPEN SORES? NO . ALLERGIC/IMMUNO: ARE YOU ALLERGIC TO IV DYE? NO . ANY NEW ALLERGIES? NO . PSYCHIATRIC: DO YOU HAVE THOUGHTS OF HURTING YOURSELF OR SOMEONE ELSE? NO . ARE YOU ABUSED, NEGLECTED, OR IN AN UNSAFE ENVIRONMENT? NO . ENDOCRINOLOGY: ARE YOU DIABETIC? NO . OTHER: DO YOU NEED ANY PRESCRIPTIONS? NO . IF YES, PLEASE LIST: ____ . ANY NEW PROBLEMS WITH YOUR MEDICATIONS? NO . WHEN DID YOU LAST EAT? ____ . WHEN DID YOU LAST DRINK? ____ . WHAT DID YOU LAST DRINK? ____ . NAME OF PERSON DRIVING YOU HOME? ____ . DO YOU HAVE ANY OTHER QUESTIONS OR CONCERNS NO . VITAL SIGNS WT 200 LBS, HT 54 IN, BMI 48.22 INDEX, BP 135/78 MM HG, HR 97 /MIN, RR 16 /MIN, TEMP 96.0 F, OXYGEN SAT % 95%, NA INITIALS AW 1401, REVIEWED BY: BV. EXAMINATION GENERAL EXAMINATION: GENERAL APPEARANCE: AWAKE,ALERT ,PLEAASANT . PSYCH AFFECT NORMAL . LUNGS: LUNG MIGUEL ARE CLEAR TO AUSCULTATION BILATERALLY. GOOD MOVEMENT OF AIR . HEART: S1, S2 IN A REGULAR RATE AND RHYTHM. NO SIGNIFICANT MURMURS, RUBS OR GALLOPS NOTED . CERVICAL TENDER OVER CERVICAL SPINE AND CERVICAL PARASPINALS.. DIAGNOSTIC TESTS REVIEWED MRI C/SPINE-08/02/18. ASSESSMENTS CERVICAL SPONDYLOSIS WITH RADICULOPATHY - M47.22 (PRIMARY) TREATMENT CERVICAL SPONDYLOSIS WITH RADICULOPATHY NOTES: C5/6 [place]. PREVENTIVE MEDICINE PAIN CLINIC TEACHING: PROCEDURE TEACHING PT GIVEN WRITTEN AND VERBAL PREPROCEDURE INSTRUCTIONS. PT VERBALIZES UNDERSTANDING OF ALL INSTRUCTIONS. BALA ASENCIO 11/20/2018 3:15:55 PM > . PROCEDURE CODES FA211 ESTABILISHED PATIENT [facility] CHARGE DISPOSITION & COMMUNICATION FOLLOW UP POST PROC (REASON: C5/6 [place]) ELECTRONICALLY SIGNED BY MATT MUELLER ON 12/05/2018 AT 12:49 PM EDT DISCLAIMER : THIS IS A VISIT SUMMARY EXTRACTED FROM THE [employer] CHART. IT IS NOT A COPY OF THE [employer] PROGRESS NOTE. SHERYL
== END ==
LOC: M PAIN 13:45
PROVIDERS: ATTEND Nurse Practitioner Family
DX: M47.22 Other spondylosis with radiculopathy, cervical region (principal); G43.909 Migraine, unspecified, not intractable, without status migrainosus; G56.03 Carpal tunnel syndrome, bilateral upper limbs; E78.5 Hyperlipidemia, unspecified; G47.33 Obstructive sleep apnea (adult) (pediatric); M19.90 Unspecified osteoarthritis, unspecified site; Z86.39 Personal history of other endocrine, nutritional and metabolic disease; Z87.891 Personal history of nicotine dependence; Z88.0 Allergy status to penicillin; Z88.6 Allergy status to analgesic agent; E66.01 Morbid (severe) obesity due to excess calories; Z68.42 Body mass index [BMI] 45.0-49.9, adult; Z79.899 Other long term (current) drug therapy

== ENCOUNTER → 2019-02-12 | Outpatient (CLI) | payer BC, OTHER ==
[~2019-02-12] MED LIST changes: +ISOVUE-M 200 41% 20ML VIAL (Q9966) As Ordered ONE; +LIDOCAINE 1% SDV INJ 30 ML VIAL As Ordered ONE; -ROSU20TA4 PO; +ROSU20TA5 PO; +diazePAM 5 MG TAB As Ordered ONE; +methylPREDNISolone SUSP 40 MG/ML (DEPO-medrol) VIAL (J1030) As Ordered ONE
--- NOTE | 2019-02-12 17:02 | REP ---
C-ARM VIEW CERVICAL SPINE: Clinical history: Pain. A single C-Arm view is performed of the cervical spine region. Injection is performed by Dr. Redmond. Needle is seen at the cervicothoracic junction. 8 seconds fluoroscopy time utilized. Electronically Signed by Yon Monzon MD 02/13/2019 10:09 A
--- NOTE | 2019-02-23 00:58 | ECWPNPC ---
PATIENT NAME: MADELEINE PERDUE : 1960 GENDER: FEMALE VISIT DATE: 02/12/2019 DISCHARGE DATE: 02/12/19 1145 VISIT LOCKED DATE TIME: PHYSICIAN: PAGE NEWSOME MD RESOURCE: PAGE NEWSOME MD REASON FOR APPOINTMENT 1. LINCOLN HISTORY OF PRESENT ILLNESS HISTORY OF PRESENT ILLNESS: PAIN THE PATIENT DESCRIBES THE PAIN... FALL RISK SCREENING: SCREENING :NO FALLS REPORTED IN THE LAST YEAR CURRENT MEDICATIONS TAKING ZOLOFT 100 MG TABLET 1 TABLET ORALLY ONCE A DAY, NOTES: 02/11/192099 TAKING ZOLOFT 50 MG TABLET 1 TABLET ORALLY ONCE A DAY, NOTES: 02/11/19629 TAKING VERAPAMIL HCL 120 MG TABLET 1 TABLET ORALLY ONCE A DAY, NOTES: 02/11/192099 TAKING IBUPROFEN 800 MG TABLET 1 TABLET WITH FOOD OR MILK NEEDED ORALLY THREE TIMES A DAY, NOTES: 2 DAYS AGO TAKING LORAZEPAM 1 MG TABLET 1 TABLET ORALLY EVERY 12 HOURS NEEDED, NOTES: 02/11/192099 TAKING RIZATRIPTAN BENZOATE 10 MG TABLET 1 TABLET NEEDED ONE TIME ORALLY AT ONSET OF MIGRAINE MAY REPEAT IN 2 HOURS, NOTES: 2 WEEKS AGO TAKING ROSUVASTATIN CALCIUM 20 MG TABLET 1 TABLET ORALLY ONCE A DAY, NOTES: 02/11/192099 TAKING ADDERALL XR 30 MG CAPSULE EXTENDED RELEASE 24 HOUR 1 CAPSULE IN THE MORNING ORALLY ONCE A DAY, NOTES: 02/11/19629 TAKING EXCEDRIN MIGRAINE 250-250-65 MG TABLET 2 TABLETS ORALLY AT ONSET ON MIGRAINES WITH RIZATRIPTAN, NOTES: 2 WEEKS AGO TAKING ZONISAMIDE 100 MG CAPSULE 1 CAPSULE ORALLY TWICE A DAY, NOTES: 3 WEEKS AGO TAKING MAY HAVE - - CBD OIL DIRECTED, NOTES: 02/11/191199 NOT-TAKING PLAQUENIL 200 MG TABLET 2 TABLETS WITH FOOD OR MILK ORALLY ONCE A DAY, NOTES: NONE RECENT NOT-TAKING BUPROPION HCL ER (SR) 150 MG TABLET EXTENDED RELEASE 12 HOUR 1 TABLET IN THE MORNING ORALLY ONCE A DAY NOT-TAKING DOXYCYCLINE MONOHYDRATE 100 MG TABLET 1 TABLET ORALLY BID X 10 DAYS MEDICATION LIST REVIEWED AND RECONCILED WITH THE PATIENT PAST MEDICAL HISTORY MIGRAINE HEADACHES BACK AND NECK PAIN BILATERAL SHOULDER PAIN- RIGHT GREATER WITH ARM PAIN 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 AND 2013 LEFT CARPAL TUNNEL RELEASE - SOS 11/2018 RIGHT CARPAL TUNNEL RELEASE - SOS 12/2018 FAMILY HISTORY FATHER: 63 YRS, COPD ASTHMA CHF, DIAGNOSED WITH OTHER MOTHER: , MULTIPLE MYLOMA, DIABETES, HYPERTENSION, CANCER SIBLINGS: , BOTH OF DC'S BROTHER-LIVING -PROSTATE CA, HYPERTENSION, HIGH CHOLESTEROL SISTERS-LIVING- HIGH CHOLESTEROL, HYPERTENSION DAUGHTER(S): ALIVE, ONE DAUGHTER- COLON CA, CANCER 3DAUGHTER(S) . SOCIAL HISTORY GENERAL: TOBACCO USE ARE YOU A:FORMER SMOKER HOW LONG HAS IT BEEN SINCE YOU LAST SMOKED?> 10 YEARS EDUCATION LEVEL OF EDUCATION:NOT FINISHED COLLEGE LANGUAGE LANGUAGES SPOKEN:INDONESIAN DOMESTIC VIOLENCE DO YOU FEEL SAFE IN YOUR ENVIRONMENT?YES RECREATIONAL DRUG USE DRUG USE?NO LEARNING BARRIERS / SPECIAL NEEDS BARRIERS TO LEARNING?YES COMMENTS DOESN'T REMEMBER THINGS AFTER SHE READS IT HEARING IMPAIRED?YES : TERRILBLE RINGING IN HER EARS THAT CONTINUES TO GET LOUDER VISION IMPAIRED?YES :CORRECTIVE LENSES COGNITIVELY IMPAIRED?NO READINESS TO LEARN?YES LEARNING PREFERENCES?YES :DEMONSTRATION/VERBAL INSTRUCTION LEARNING CAPABILITIES PRESENT?YES EMOTIONAL BARRIERS?NO SPECIAL DEVICES?NO ASSISTANT PLANT MANAGER NEEDED?NO PAIN CLINIC PFS, CLERGY, PUBLIC HEALTH REFERRALS PFS REFERRAL NEEDED?NO CLERGY REFERRAL NEEDED?NO PUBLIC HEALTH REFERRAL NEEDED?NO WAS THE PROVIDER NOTIFIED OF ANY PERTINENT INFO?YES N/A HAS THE PATIENT BEEN EDUCATED REGARDING HIS/HER PLAN OF CARE?YES HAS THE PATIENT BEEN EDUCATED REGARDING PAIN, THE RISK FOR PAIN, THE IMPORTANCE OF EFFECTIVE PAIN MANAGEMENT, AND THE PAIN ASSESSMENT PROCESS?YES LATEX QUESTIONNAIRE LATEX ALLERGY : HAVE YOU EVER DEVELOPED ANY TYPE OF REACTION AFTER HANDLING LATEX PRODUCTS SUCH RUBBER GLOVES, CONDOMS, DIAPHRAGMS, BALLOONS, SOCKS, OR UNDERWEAR?NO LATEX ALLERGY : HAVE YOU EVER DEVELOPED ANY TYPE OF REACTION DURING OR AFTER DENTAL APPOINTMENT, VAGINAL/RECTAL EXAMINATION, SURGICAL PROCEDURE, OR ANY OTHER EXPOSURE?NO LATEX RISK : HAVE YOU EVER HAD ANY DIFFICULTY BREATHING OR HIVES AFTER EATING OR HANDLING ANY FRUITS, OR VEGETABLES; SUCH KIWI, BANANAS, STONE FRUITS, OR CHESTNUTSNO LATEX RISK : DO YOU HAVE A PREVIOUS PERSONAL HISTORY OF MORE THAN NINE SURGERIES, SPINA BIFIDA, OR REPEATED CATHERIZATIONS? NO LATEX RISK : ARE YOU FREQUENTLY EXPOSED TO LATEX PRODUCTS IN YOUR OCCUPATION?NO DATE ASKED : 11/20/2018 CAFFEINE CAFFEINE USE?YES HOW OFTEN AND HOW MUCH? 1 CUP COFFEE/DAY ADVANCE DIRECTIVE ADVANCE DIRECTIVE DISCUSSED WITH PATIENT:YES PATIENT GIVEN HCP INFORMATION AT THIS TIME, DECLINED ASSISTANCE IN FILLING IT OUT. STATED SHE WOULD TAKE IT HOME AN DFILL IT OUT. 02/12/19 SUPA RASTAFARIAN [id number] ALCOHOL SCREENING DID YOU HAVE A DRINK CONTAINING ALCOHOL IN THE PAST YEAR?NO POINTS0 INTERPRETATIONNEGATIVE OCCUPATION: WORKS AT [employer]. REVIEWED WITH PATIENT 11/20/18 1435 BVREVIEWED WITH PATIENT 02/12/19 0968 SUPA. HOSPITALIZATION/MAJOR DIAGNOSTIC PROCEDURE CHILD SURGERY REVIEW OF SYSTEMS REVIEWED BY: PROVIDER: . CONSTITUTIONAL: ANY CHANGE IN YOUR MEDICAL CONDITION? NO . CHILLS NO . FEVER NO . INFECTION: DO YOU HAVE NEW INFECTIONS? NO . DO YOU HAVE HISTORY OF MRSA? NO . MUSCULOSKELETAL: ANY NEW PATTERNS OF PAIN OR NUMBNESS? NO . GASTROENTEROLOGY: ANY NEW CHANGE IN BOWEL CONTROL? NO . GENITOURINARY: ANY NEW CHANGE IN BLADDER CONTROL? NO . IS THERE A CHANCE YOU COULD BE ? NO . HEMATOLOGY/LYMPH: DO YOU TAKE ANY BLOOD THINNERS? (FOR EXAMPLE- COUMADIN, PLAVIX, AGGRENOX, PLATEL, PRADAXA, OR XARELTO) NO . WHEN WAS YOUR LAST DOSE? DATE: TIME: . NEUROLOGY: HAVE YOU FALLEN IN THE PAST 12 MONTHS? YES, STATES SHE FALLS OFTEN. MOST RECENT FALL WAS A COUPLE OF DAYS AGO WHILE TRYING TO BEND OVER. STATES NO INJURIES, NO ED VISIT . ANY NEW EXTREMITY NUMBNESS OR WEAKNESS? YES, STATES NUMBNESS TO BILATERAL HANDS, PATIENT DID HAVE CARPAL TUNNEL RELEASE SURGERY RECENTLY AND THEY SAID IT COULD BE UP TO SIX MONTHS TO HELP RELIEVE THE NUMBNESS . CARDIOLOGY: DO YOU HAVE A PACEMAKER OR DEFIBRILLATOR? NO . RESPIRATORY: HAVE YOU BEEN SICK IN THE PAST WEEK? NO . FEVER NO . FLU LIKE SYMPTOMS? NO . COUGH NO . INTEGUMENTARY: DO YOU HAVE ANY RASHES OR OPEN SORES? NO . ALLERGIC/IMMUNO: ARE YOU ALLERGIC TO IV DYE? NO . ANY NEW ALLERGIES? NO . PSYCHIATRIC: DO YOU HAVE THOUGHTS OF HURTING YOURSELF OR SOMEONE ELSE? NO . ARE YOU ABUSED, NEGLECTED, OR IN AN UNSAFE ENVIRONMENT? NO . ENDOCRINOLOGY: ARE YOU DIABETIC? NO . OTHER: DO YOU NEED ANY PRESCRIPTIONS? NO . IF YES, PLEASE LIST: ____ . ANY NEW PROBLEMS WITH YOUR MEDICATIONS? NO . WHEN DID YOU LAST EAT? ____02/11/19 1930 . WHEN DID YOU LAST DRINK? ____02/12/19 0800 . WHAT DID YOU LAST DRINK? ____WATER . NAME OF PERSON DRIVING YOU HOME? ____BENJAMIN . DO YOU HAVE ANY OTHER QUESTIONS OR CONCERNS NO . VITAL SIGNS WT 195.8 LBS, HT 54 IN, BMI 47.20 INDEX, BP 134/71 MM HG, HR 75 /MIN, RR 16 /MIN, TEMP 97.4 F, OXYGEN SAT % 96%, SAFE IN ENV? (Y/N) YES, NA INITIALS AW 0941, REVIEWED BY: SUPA. ASSESSMENTS CERVICAL DISC DISORDER WITH RADICULOPATHY OF CERVICAL REGION - M50.10 (PRIMARY) PROCEDURES PN CERVICAL EPIDURAL PRE PROCEDURE DIAGNOSIS CERVICAL DISC DISORDER WITH RADICULOPATHY POST PROCEDURE DIAGNOSIS CERVICAL DISC DISORDER WITH RADICULOPATHY PROCEDURE CERVICAL EPIDURAL STEROID INJECTION UNDER FLUOROSCOPIC GUIDANCE SURGEON DR. PAGE NEWSOME CERAMICS ENGINEER NONE ANESTHESIA LOCAL PRE PROCEDURE NOTE THE PATIENT HAS A HISTORY OF CHRONIC CERVICAL PAIN. I EVALUATE THE PATIENT AND REVIEWED THE CHART. I WENT OVER THE RISKS, ALTERNATIVES, AND BENEFITS ASSOCIATED WITH THIS PROCEDURE. THE PATIENT WOULD LIKE TO PROCEED AND GIVE CONSENT TO PERFORMED THE PROCEDURE. THE PATIENT DENIES UNEXPLAINABLE WEIGHT LOSS, FEVER, CHILLS, OR NEW CHANGES IN URINARY OR BOWEL CONTROL DESCRIPTION OF PROCEDURE THE PATIENT WAS BROUGHT TO THE PROCEDURE ROOM AND PLACED IN THE PRONE POSITION. THE CERVICOTHORACIC AREA WAS CLEANED WITH BETADINE SOLUTION AND DRAPED ASEPTICALLY. THE PROCEDURE WAS DONE UNDER STERILE CONDITIONS. I CHECKED LATERALITY AND THE LEVEL WHERE THE PROCEDURE WAS GOING TO BE PERFORMED WITH THE PATIENT AND THE SUPPORTING STAFF AT THE MOMENT OF THE TIME OUT IN THE PROCEDURE ROOM. UNDER FLUOROSCOPIC GUIDANCE, THE TARGET WAS SELECTED AT THE INTERLAMINAR LEVEL OF C7-T1. LIDOCAINE WAS USED TO NUMB THE SKIN AND THE SUBCUTANEOUS TISSUE BELOW IT. EPIDURAL TUOHY NEEDLE 17-GAUGE WAS ADVANCED UNDER FLUOROSCOPIC GUIDANCE AND FOLLOWING PATIENT FEEDBACK UNTIL THE EPIDURAL SPACE WAS REACHED 6 CM DEEP INTO THE SKIN BY THE LOSS OF RESISTANCE TECHNIQUE. CHRISTIANO Mora-200 DYE WAS INJECTED SHOWING ADEQUATE SPREAD OF THE DYE. THEN, A SOLUTION OF 3 ML OF NORMAL SALINE WITH DEPO-MEDROL 60 MG WAS INJECTED SLOWLY FOLLOWING PATIENT FEEDBACK. THERE WAS NO EVIDENCE OF BLOOD, PARESTHESIA OR CEREBROSPINAL FLUID DURING THE PROCEDURE. THE PATIENT WAS SENT TO THE RECOVERY ROOM. THE PATIENT WAS MOVING THE EXTREMITIES AND DOING WELL. THERE WAS NO COMPLICATION DURING THE PROCEDURE. FLUOROSCOPY TIME WAS 8 SECONDS POST PROCEDURE NOTE THE PATIENT WILL BE SEEN IN A FOLLOW UP IN THE NEXT FEW WEEKS. INSTRUCTIONS WERE GIVEN, QUESTIONS WERE ANSWERED, AND THE PATIENT EXPRESSED UNDERSTANDING AND AGREES WITH THE PLAN. I, HARMEET ALAS, DOCUMENTED THE ABOVE INFORMATION ACTING A SCRIBE FOR DR. NEWSOME. I HAVE REVIEWED THE ABOVE DOCUMENT, WRITTEN BY HARMEET ROSALESIBStefanie AND I VERIFY THAT IT IS ACCURATE. DIAGNOSTIC IMAGING [facility] FLUORO GUIDE SPINE INJECTION (PAIN)[id number] PROCEDURE CODES 6045F RADXPS IN END [id number] PXD [id number] LUMBAR/SACRAL W/ IMAGING DISPOSITION & COMMUNICATION FOLLOW UP 3 WEEKS ELECTRONICALLY SIGNED BY PAGE NEWSOME MD, MD ON 02/22/2019 AT 01:24 PM EDT DISCLAIMER : THIS IS A VISIT SUMMARY EXTRACTED FROM THE [employer] CHART. IT IS NOT A COPY OF THE [employer] PROGRESS NOTE. MTDD
== END ==
LOC: M PAIN 09:30
PROVIDERS: ATTEND Anesthesiology
DX: M50.10 Cervical disc disorder with radiculopathy, unspecified cervical region (principal); G43.909 Migraine, unspecified, not intractable, without status migrainosus; M25.511 Pain in right shoulder; M25.512 Pain in left shoulder; E78.5 Hyperlipidemia, unspecified; G47.33 Obstructive sleep apnea (adult) (pediatric); M32.9 Systemic lupus erythematosus, unspecified; Z90.49 Acquired absence of other specified parts of digestive tract; Z87.891 Personal history of nicotine dependence; Z79.899 Other long term (current) drug therapy; Z88.0 Allergy status to penicillin; Z88.5 Allergy status to narcotic agent; Z88.8 Allergy status to other drugs, medicaments and biological substances
CPT/HCPCS: 62323; J1030; Q9966

== ENCOUNTER → 2019-03-20 | Outpatient (CLI) | payer BC, OTHER ==
[~2019-03-20] MED LIST changes: -ISOVUE-M 200 41% 20ML VIAL (Q9966) As Ordered ONE; -LIDOCAINE 1% SDV INJ 30 ML VIAL As Ordered ONE; -LORA1TAB12 PO; +LORA1TAB4 PO; -OMEP40CA2 PO; +OMEP40CA97 PO; -diazePAM 5 MG TAB As Ordered ONE; -methylPREDNISolone SUSP 40 MG/ML (DEPO-medrol) VIAL (J1030) As Ordered ONE
--- NOTE | 2019-04-05 02:05 | ECWPNPC ---
PATIENT NAME: MADELEINE PERDUE : 1960 GENDER: FEMALE VISIT DATE: 03/20/2019 DISCHARGE DATE: 03/20/19 1307 VISIT LOCKED DATE TIME: PHYSICIAN: SUGAR CROFT RESOURCE: SUGAR CROFT REASON FOR APPOINTMENT 1. POST PROC HISTORY OF PRESENT ILLNESS HISTORY OF PRESENT ILLNESS: HERE FOR POST PROCEDURE F/U.HAD LINCOLN ON 02/12/19.REPORTING IMPROVEMENT IN HEADACHE SINCE PROCEDURE.CHIEF AREA OF PAIN IS LOW BACK WITH RADIATION INTO LEFT ANTERIOR THIGH.REPORTING THAT BENDING FORWARD OR LIFTING AGGREVATES PAIN. PAIN THE PATIENT DESCRIBES THE PAIN... FALL RISK SCREENING: SCREENING :NO FALLS REPORTED IN THE LAST YEAR CURRENT MEDICATIONS TAKING ZOLOFT 100 MG TABLET 1 TABLET ORALLY ONCE A DAY TAKING ZOLOFT 50 MG TABLET 1 TABLET ORALLY ONCE A DAY TAKING IBUPROFEN 800 MG TABLET 1 TABLET WITH FOOD OR MILK NEEDED ORALLY THREE TIMES A DAY TAKING LORAZEPAM 1 MG TABLET 1 TABLET ORALLY EVERY 12 HOURS NEEDED TAKING RIZATRIPTAN BENZOATE 10 MG TABLET 1 TABLET NEEDED ONE TIME ORALLY AT ONSET OF MIGRAINE MAY REPEAT IN 2 HOURS TAKING ROSUVASTATIN CALCIUM 20 MG TABLET 1 TABLET ORALLY ONCE A DAY TAKING ADDERALL XR 30 MG CAPSULE EXTENDED RELEASE 24 HOUR 1 CAPSULE IN THE MORNING ORALLY ONCE A DAY TAKING EXCEDRIN MIGRAINE 250-250-65 MG TABLET 2 TABLETS ORALLY AT ONSET ON MIGRAINES WITH RIZATRIPTAN TAKING MAY HAVE - - CBD OIL DIRECTED, NOTES: 02/11/19 1200 TAKING VERAPAMIL HCL ER 180 MG TABLET EXTENDED RELEASE 1 TABLET ORALLY ONCE A DAY TAKING METHOCARBAMOL 750 MG TABLET 1 TABLET ORALLY BID NOT-TAKING ZONISAMIDE 100 MG CAPSULE 1 CAPSULE ORALLY TWICE A DAY NOT-TAKING PLAQUENIL 200 MG TABLET 2 TABLETS WITH FOOD OR MILK ORALLY ONCE A DAY, NOTES: NONE RECENT NOT-TAKING BUPROPION HCL ER (SR) 150 MG TABLET EXTENDED RELEASE 12 HOUR 1 TABLET IN THE MORNING ORALLY ONCE A DAY NOT-TAKING DOXYCYCLINE MONOHYDRATE 100 MG TABLET 1 TABLET ORALLY BID X 10 DAYS MEDICATION LIST REVIEWED AND RECONCILED WITH THE PATIENT PAST MEDICAL HISTORY MIGRAINE HEADACHES BACK AND NECK PAIN BILATERAL SHOULDER PAIN- RIGHT GREATER WITH ARM PAIN 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 AND 2013 LEFT CARPAL TUNNEL RELEASE - SOS 11/2018 RIGHT CARPAL TUNNEL RELEASE - SOS 12/2018 FAMILY HISTORY FATHER: 63 YRS, COPD ASTHMA CHF, DIAGNOSED WITH OTHER SPECIFIED CONDITIONS INFLUENCING HEALTH STATUS MOTHER: , MULTIPLE MYLOMA, DIABETES, HYPERTENSION, OTHER MALIGNANT NEOPLASM OF UNSPECIFIED SITE SIBLINGS: , BOTH OF DE'S BROTHER-LIVING -PROSTATE CA, HYPERTENSION, HIGH CHOLESTEROL SISTERS-LIVING- HIGH CHOLESTEROL, HYPERTENSION DAUGHTER(S): ALIVE, ONE DAUGHTER- COLON CA, OTHER MALIGNANT NEOPLASM OF UNSPECIFIED SITE 3DAUGHTER(S) . SOCIAL HISTORY GENERAL: TOBACCO USE ARE YOU A:FORMER SMOKER HOW LONG HAS IT BEEN SINCE YOU LAST SMOKED?> 10 YEARS EDUCATION LEVEL OF EDUCATION:NOT FINISHED COLLEGE LANGUAGE LANGUAGES SPOKEN:SINGAPOREAN DOMESTIC VIOLENCE DO YOU FEEL SAFE IN YOUR ENVIRONMENT?YES RECREATIONAL DRUG USE DRUG USE?NO LEARNING BARRIERS / SPECIAL NEEDS BARRIERS TO LEARNING?YES COMMENTS DOESN'T REMEMBER THINGS AFTER SHE READS IT HEARING IMPAIRED?YES VISION IMPAIRED?YES COGNITIVELY IMPAIRED?NO : TERRILBLE RINGING IN HER EARS THAT CONTINUES TO GET LOUDER :CORRECTIVE LENSES READINESS TO LEARN?YES LEARNING PREFERENCES?YES :DEMONSTRATION/VERBAL INSTRUCTION LEARNING CAPABILITIES PRESENT?YES EMOTIONAL BARRIERS?NO SPECIAL DEVICES?NO EAR FLAP BINDER NEEDED?NO PAIN CLINIC PFS, CLERGY, PUBLIC HEALTH REFERRALS PFS REFERRAL NEEDED?NO CLERGY REFERRAL NEEDED?NO PUBLIC HEALTH REFERRAL NEEDED?NO WAS THE PROVIDER NOTIFIED OF ANY PERTINENT INFO?YES N/A HAS THE PATIENT BEEN EDUCATED REGARDING HIS/HER PLAN OF CARE?YES HAS THE PATIENT BEEN EDUCATED REGARDING PAIN, THE RISK FOR PAIN, THE IMPORTANCE OF EFFECTIVE PAIN MANAGEMENT, AND THE PAIN ASSESSMENT PROCESS?YES LATEX QUESTIONNAIRE LATEX ALLERGY : HAVE YOU EVER DEVELOPED ANY TYPE OF REACTION AFTER HANDLING LATEX PRODUCTS SUCH RUBBER GLOVES, CONDOMS, DIAPHRAGMS, BALLOONS, SOCKS, OR UNDERWEAR?NO LATEX ALLERGY : HAVE YOU EVER DEVELOPED ANY TYPE OF REACTION DURING OR AFTER DENTAL APPOINTMENT, VAGINAL/RECTAL EXAMINATION, SURGICAL PROCEDURE, OR ANY OTHER EXPOSURE?NO DATE ASKED : 11/20/2018 LATEX RISK : HAVE YOU EVER HAD ANY DIFFICULTY BREATHING OR HIVES AFTER EATING OR HANDLING ANY FRUITS, OR VEGETABLES; SUCH KIWI, BANANAS, STONE FRUITS, OR CHESTNUTSNO LATEX RISK : DO YOU HAVE A PREVIOUS PERSONAL HISTORY OF MORE THAN NINE SURGERIES, SPINA BIFIDA, OR REPEATED CATHERIZATIONS? NO LATEX RISK : ARE YOU FREQUENTLY EXPOSED TO LATEX PRODUCTS IN YOUR OCCUPATION?NO CAFFEINE CAFFEINE USE?YES HOW OFTEN AND HOW MUCH? 1 CUP COFFEE/DAY ADVANCE DIRECTIVE ADVANCE DIRECTIVE DISCUSSED WITH PATIENT:YES PATIENT GIVEN HCP INFORMATION AT THIS TIME, DECLINED ASSISTANCE IN FILLING IT OUT. STATED SHE WOULD TAKE IT HOME AN DFILL IT OUT. 02/12/19 JS RELIGIOUS [id number] MANDAEN ALCOHOL SCREENING DID YOU HAVE A DRINK CONTAINING ALCOHOL IN THE PAST YEAR?NO POINTS0 INTERPRETATIONNEGATIVE OCCUPATION: WORKS AT [employer]. REVIEWED WITH PATIENT 11/20/18 1435 BVREVIEWED WITH PATIENT 02/12/19 0951 JSREVIEWED WITH PATIENT 03/20/19 1222 NLJ. HOSPITALIZATION/MAJOR DIAGNOSTIC PROCEDURE CHILD SURGERY REVIEW OF SYSTEMS REVIEWED BY: PROVIDER: SUGAR GUTIERREZ . CONSTITUTIONAL: ANY CHANGE IN YOUR MEDICAL CONDITION? NO . CHILLS NO . FEVER NO . INFECTION: DO YOU HAVE NEW INFECTIONS? NO . DO YOU HAVE HISTORY OF MRSA? NO . MUSCULOSKELETAL: ANY NEW PATTERNS OF PAIN OR NUMBNESS? YES- CERVICAL EPIDURAL INJECTION WORKED WELL, BUT PATIENT SATTES HER LOWER ACK PAIN HAS INCREASED AND GOES DOWN THE LEFT LEG . GASTROENTEROLOGY: ANY NEW CHANGE IN BOWEL CONTROL? NO . GENITOURINARY: ANY NEW CHANGE IN BLADDER CONTROL? NO . IS THERE A CHANCE YOU COULD BE ? NO . HEMATOLOGY/LYMPH: DO YOU TAKE ANY BLOOD THINNERS? (FOR EXAMPLE- COUMADIN, PLAVIX, AGGRENOX, PLATEL, PRADAXA, OR XARELTO) NO . WHEN WAS YOUR LAST DOSE? DATE: TIME: . NEUROLOGY: HAVE YOU FALLEN IN THE PAST 12 MONTHS? YES- STATES SHE HAS FREQUENT FALLS . ANY NEW EXTREMITY NUMBNESS OR WEAKNESS? YES- STATES SHE HAS PAIN AND NUMBNESS DOWN LEFT LEG AND STATES HER LEG FEELS WEAK . CARDIOLOGY: DO YOU HAVE A PACEMAKER OR DEFIBRILLATOR? NO . RESPIRATORY: HAVE YOU BEEN SICK IN THE PAST WEEK? NO . FEVER NO . FLU LIKE SYMPTOMS? NO . COUGH NO . INTEGUMENTARY: DO YOU HAVE ANY RASHES OR OPEN SORES? NO . ALLERGIC/IMMUNO: ARE YOU ALLERGIC TO IV DYE? NO . ANY NEW ALLERGIES? NO . PSYCHIATRIC: DO YOU HAVE THOUGHTS OF HURTING YOURSELF OR SOMEONE ELSE? NO . ARE YOU ABUSED, NEGLECTED, OR IN AN UNSAFE ENVIRONMENT? NO . ENDOCRINOLOGY: ARE YOU DIABETIC? NO . OTHER: DO YOU NEED ANY PRESCRIPTIONS? NO . IF YES, PLEASE LIST: ____ . ANY NEW PROBLEMS WITH YOUR MEDICATIONS? NO . WHEN DID YOU LAST EAT? ____ . WHEN DID YOU LAST DRINK? ____ . WHAT DID YOU LAST DRINK? ____ . NAME OF PERSON DRIVING YOU HOME? ____ . DO YOU HAVE ANY OTHER QUESTIONS OR CONCERNS YES- STATES CERVICAL EPIDURAL INJECTIONS WORKED WELL, BUT STATES NOW SHE HAS LOWER BACK PAIN AFFECTING HER LEGS, CURRENTLY HER LEFT LEG . VITAL SIGNS WT 198.4 LBS, HT 54 IN, BMI 47.83 INDEX, BP 133/76 MM HG, HR 84 /MIN, RR 16 /MIN, TEMP 96.4 F, OXYGEN SAT % 97%, SAFE IN ENV? (Y/N) YES, NA INITIALS AW 1155, REVIEWED BY: SAIRA. EXAMINATION GENERAL EXAMINATION: GENERAL AWAKE,ALERT ,PLEAASANT . PSYCH AFFECT NORMAL . LUNGS: LUNG MIGUEL ARE CLEAR TO AUSCULTATION BILATERALLY. GOOD MOVEMENT OF AIR . HEART: S1, S2 IN A REGULAR RATE AND RHYTHM. NO SIGNIFICANT MURMURS, RUBS OR GALLOPS NOTED . LUMBAR SACRAL SPINE TENDER OVER BILAT. L4/5-L5/S1 LUMBAR FACETS WITH FACET LOADING. DIAGNOSTIC TESTS REVIEWEDI L/S SPINE-08/02/18. 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 PROCEDURE CODES FA211 ESTABILISHED PATIENT [facility] FAC[facility] CHARGE DISPOSITION & COMMUNICATION FOLLOW UP POST (REASON: BILAT LFBT L4/5-L5/S1) ELECTRONICALLY SIGNED BY MATT MUELLER ON 04/04/2019 AT 09:04 AM EDT DISCLAIMER : THIS IS A VISIT SUMMARY EXTRACTED FROM THE [employer] CHART. IT IS NOT A COPY OF THE [email or web address] PROGRESS NOTE. SHERYL
== END ==
LOC: M PAIN 11:30
PROVIDERS: ATTEND Anesthesiology
DX: M47.816 Spondylosis without myelopathy or radiculopathy, lumbar region (principal); G43.909 Migraine, unspecified, not intractable, without status migrainosus; E78.5 Hyperlipidemia, unspecified; G47.33 Obstructive sleep apnea (adult) (pediatric); M19.90 Unspecified osteoarthritis, unspecified site; M32.9 Systemic lupus erythematosus, unspecified; Z87.891 Personal history of nicotine dependence; Z88.0 Allergy status to penicillin; Z88.6 Allergy status to analgesic agent; Z91.81 History of falling; E66.01 Morbid (severe) obesity due to excess calories; Z68.42 Body mass index [BMI] 45.0-49.9, adult; Z79.899 Other long term (current) drug therapy

== ENCOUNTER → 2019-05-03 | Outpatient (CLI) | payer OTHER, BC ==
[~2019-05-03] MED LIST changes: +LORA1TAB12 PO; -LORA1TAB4 PO
[2019-05-03 20:25] LABS: BLOOD UREA NITROGEN 14 MG/DL (7-18); CREATININE FOR GFR 0.74 MG/DL (0.55-1.30); GLOMERULAR FILTRATION RATE > 60.0 (>51)
== END ==
LOC: M WUC 15:22
PROVIDERS: ATTEND Psychiatry & Neurology Neurology
DX: I10 Essential (primary) hypertension (principal)

== ENCOUNTER → 2019-06-04 | Outpatient (CLI) | payer BC, OTHER ==
[~2019-06-04] MED LIST changes: +BUPIVACAINE HCL 0.25% 30 ML VIAL As Ordered ONE; +ISOVUE-M 300 61% 15ML VIAL (Q9967) As Ordered ONE; +LIDOCAINE 1% SDV INJ 30 ML VIAL As Ordered ONE; +TRIAMCINOLONE ACETONIDE SUSP 40 MG/ML VIAL (J3301) As Ordered ONE; +diazePAM 5 MG TAB As Ordered ONE
--- NOTE | 2019-06-04 15:58 | REP ---
Partial lumbar spine series: To views . History: Injection procedure for pain. 19 seconds of fluoroscopy time is reported. Findings: A sequence of two fluoroscopically obtained last image hold procedural spot radiographs of the lumbar spine document needle position and contrast injection associated with injection procedure. Electronically Signed by Davey Ulloa MD 06/04/2019 03:49 P
--- NOTE | 2019-06-12 02:29 | ECWPNPC ---
PATIENT NAME: MADELEINE PERDUE : 1960 GENDER: FEMALE VISIT DATE: 06/04/2019 DISCHARGE DATE: 06/04/19 1420 VISIT LOCKED DATE TIME: PHYSICIAN: PAGE NEWSOME MD RESOURCE: PAGE NEWSOME MD REASON FOR APPOINTMENT 1. BILAT LFBT L4/5-L5/S1 HISTORY OF PRESENT ILLNESS HISTORY OF PRESENT ILLNESS: PAIN THE PATIENT DESCRIBES THE PAIN... FALL RISK SCREENING: SCREENING :NO FALLS REPORTED IN THE LAST YEAR CURRENT MEDICATIONS TAKING ZOLOFT 100 MG TABLET 1 TABLET ORALLY ONCE A DAY, NOTES: 06/02/19 TAKING ZOLOFT 50 MG TABLET 1 TABLET ORALLY ONCE A DAY, NOTES: 06/02/19 TAKING IBUPROFEN 800 MG TABLET 1 TABLET WITH FOOD OR MILK NEEDED ORALLY THREE TIMES A DAY, NOTES: NONE LATELY TAKING LORAZEPAM 1 MG TABLET 1 TABLET ORALLY EVERY 12 HOURS NEEDED, NOTES: 06/03/19 TAKING RIZATRIPTAN BENZOATE 10 MG TABLET 1 TABLET NEEDED ONE TIME ORALLY AT ONSET OF MIGRAINE MAY REPEAT IN 2 HOURS, NOTES: 06/02/19 TAKING ROSUVASTATIN CALCIUM 20 MG TABLET 1 TABLET ORALLY ONCE A DAY, NOTES: 06/02/19 TAKING ADDERALL XR 30 MG CAPSULE EXTENDED RELEASE 24 HOUR 1 CAPSULE IN THE MORNING ORALLY ONCE A DAY, NOTES: 06/03/19 TAKING EXCEDRIN MIGRAINE 250-250-65 MG TABLET 2 TABLETS ORALLY AT ONSET ON MIGRAINES WITH RIZATRIPTAN, NOTES: NONE LATELY TAKING MAY HAVE - - CBD OIL DIRECTED, NOTES: NONE LATELY TAKING VERAPAMIL HCL ER 180 MG TABLET EXTENDED RELEASE 1 TABLET ORALLY ONCE A DAY, NOTES: 06/03/19 TAKING METHOCARBAMOL 750 MG TABLET 1 TABLET ORALLY BID, NOTES: NONE LATELY TAKING ZONISAMIDE 100 MG CAPSULE 1 CAPSULE ORALLY TWICE A DAY, NOTES: NONE LATELY TAKING PLAQUENIL 200 MG TABLET 2 TABLETS WITH FOOD OR MILK ORALLY ONCE A DAY, NOTES: 2 WEEKS AGO NOT-TAKING BUPROPION HCL ER (SR) 150 MG TABLET EXTENDED RELEASE 12 HOUR 1 TABLET IN THE MORNING ORALLY ONCE A DAY NOT-TAKING DOXYCYCLINE MONOHYDRATE 100 MG TABLET 1 TABLET ORALLY BID X 10 DAYS MEDICATION LIST REVIEWED AND RECONCILED WITH THE PATIENT PAST MEDICAL HISTORY MIGRAINE HEADACHES BACK AND NECK PAIN BILATERAL SHOULDER PAIN- RIGHT GREATER WITH ARM PAIN 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 AND 2013 LEFT CARPAL TUNNEL RELEASE - SOS 11/2018 RIGHT CARPAL TUNNEL RELEASE - SOS 12/2018 FAMILY HISTORY FATHER: 63 YRS, COPD ASTHMA CHF, DIAGNOSED WITH OTHER SPECIFIED CONDITIONS INFLUENCING HEALTH STATUS MOTHER: , MULTIPLE MYLOMA, DIABETES, HYPERTENSION, OTHER MALIGNANT NEOPLASM OF UNSPECIFIED SITE SIBLINGS: , BOTH OF MN'S BROTHER-LIVING -PROSTATE CA, HYPERTENSION, HIGH CHOLESTEROL SISTERS-LIVING- HIGH CHOLESTEROL, HYPERTENSION DAUGHTER(S): ALIVE, ONE DAUGHTER- COLON CA, OTHER MALIGNANT NEOPLASM OF UNSPECIFIED SITE 3DAUGHTER(S) . SOCIAL HISTORY GENERAL: TOBACCO USE ARE YOU A:FORMER SMOKER HOW LONG HAS IT BEEN SINCE YOU LAST SMOKED?> 10 YEARS EDUCATION LEVEL OF EDUCATION:NOT FINISHED COLLEGE LANGUAGE LANGUAGES SPOKEN:BULGARIAN DOMESTIC VIOLENCE DO YOU FEEL SAFE IN YOUR ENVIRONMENT?YES RECREATIONAL DRUG USE DRUG USE?NO LEARNING BARRIERS / SPECIAL NEEDS BARRIERS TO LEARNING?YES COMMENTS DOESN'T REMEMBER THINGS AFTER SHE READS IT HEARING IMPAIRED?YES VISION IMPAIRED?YES COGNITIVELY IMPAIRED?NO : TERRILBLE RINGING IN HER EARS THAT CONTINUES TO GET LOUDER :CORRECTIVE LENSES READINESS TO LEARN?YES LEARNING PREFERENCES?YES :DEMONSTRATION/VERBAL INSTRUCTION LEARNING CAPABILITIES PRESENT?YES EMOTIONAL BARRIERS?NO SPECIAL DEVICES?NO MERCURY CELL CLEANER NEEDED?NO PAIN CLINIC PFS, CLERGY, PUBLIC HEALTH REFERRALS PFS REFERRAL NEEDED?NO CLERGY REFERRAL NEEDED?NO PUBLIC HEALTH REFERRAL NEEDED?NO WAS THE PROVIDER NOTIFIED OF ANY PERTINENT INFO?YES N/A HAS THE PATIENT BEEN EDUCATED REGARDING HIS/HER PLAN OF CARE?YES HAS THE PATIENT BEEN EDUCATED REGARDING PAIN, THE RISK FOR PAIN, THE IMPORTANCE OF EFFECTIVE PAIN MANAGEMENT, AND THE PAIN ASSESSMENT PROCESS?YES LATEX QUESTIONNAIRE LATEX ALLERGY : HAVE YOU EVER DEVELOPED ANY TYPE OF REACTION AFTER HANDLING LATEX PRODUCTS SUCH RUBBER GLOVES, CONDOMS, DIAPHRAGMS, BALLOONS, SOCKS, OR UNDERWEAR?NO LATEX ALLERGY : HAVE YOU EVER DEVELOPED ANY TYPE OF REACTION DURING OR AFTER DENTAL APPOINTMENT, VAGINAL/RECTAL EXAMINATION, SURGICAL PROCEDURE, OR ANY OTHER EXPOSURE?NO DATE ASKED : 11/20/2018 LATEX RISK : HAVE YOU EVER HAD ANY DIFFICULTY BREATHING OR HIVES AFTER EATING OR HANDLING ANY FRUITS, OR VEGETABLES; SUCH KIWI, BANANAS, STONE FRUITS, OR CHESTNUTSNO LATEX RISK : DO YOU HAVE A PREVIOUS PERSONAL HISTORY OF MORE THAN NINE SURGERIES, SPINA BIFIDA, OR REPEATED CATHERIZATIONS? NO LATEX RISK : ARE YOU FREQUENTLY EXPOSED TO LATEX PRODUCTS IN YOUR OCCUPATION?NO CAFFEINE CAFFEINE USE?YES HOW OFTEN AND HOW MUCH? 1 CUP COFFEE/DAY ADVANCE DIRECTIVE ADVANCE DIRECTIVE DISCUSSED WITH PATIENT:YES PATIENT GIVEN HCP INFORMATION AT THIS TIME, DECLINED ASSISTANCE IN FILLING IT OUT. STATED SHE WOULD TAKE IT HOME AN DFILL IT OUT. CONFUCIANIST [id number] YARSANI ALCOHOL SCREENING DID YOU HAVE A DRINK CONTAINING ALCOHOL IN THE PAST YEAR?NO POINTS0 INTERPRETATIONNEGATIVE OCCUPATION: WORKS AT [employer]. REVIEWED WITH PATIENT 11/20/18 1435 BVREVIEWED WITH PATIENT 02/12/19 0951 JSREVIEWED WITH PATIENT 03/20/19 1222 NLJ. HOSPITALIZATION/MAJOR DIAGNOSTIC PROCEDURE CHILD SURGERY REVIEW OF SYSTEMS REVIEWED BY: PROVIDER: . CONSTITUTIONAL: ANY CHANGE IN YOUR MEDICAL CONDITION? NO . CHILLS NO . FEVER NO . INFECTION: DO YOU HAVE NEW INFECTIONS? NO . DO YOU HAVE HISTORY OF MRSA? NO . MUSCULOSKELETAL: ANY NEW PATTERNS OF PAIN OR NUMBNESS? YES, SOME NUMBNESS COMING BACK TO HANDS . GASTROENTEROLOGY: ANY NEW CHANGE IN BOWEL CONTROL? NO . GENITOURINARY: ANY NEW CHANGE IN BLADDER CONTROL? NO . IS THERE A CHANCE YOU COULD BE ? NO . HEMATOLOGY/LYMPH: DO YOU TAKE ANY BLOOD THINNERS? (FOR EXAMPLE- COUMADIN, PLAVIX, AGGRENOX, PLATEL, PRADAXA, OR XARELTO) NO . WHEN WAS YOUR LAST DOSE? DATE: TIME: . NEUROLOGY: HAVE YOU FALLEN IN THE PAST 12 MONTHS? YES, FELL 10 DAYS AGO FROM LOSS OF BALANCE PT DENIES INJURIES . ANY NEW EXTREMITY NUMBNESS OR WEAKNESS? YES, NUMBNESS TO HANDS . CARDIOLOGY: DO YOU HAVE A PACEMAKER OR DEFIBRILLATOR? NO . RESPIRATORY: HAVE YOU BEEN SICK IN THE PAST WEEK? NO . FEVER NO . FLU LIKE SYMPTOMS? NO . COUGH NO . INTEGUMENTARY: DO YOU HAVE ANY RASHES OR OPEN SORES? NO . ALLERGIC/IMMUNO: ARE YOU ALLERGIC TO IV DYE? NO . ANY NEW ALLERGIES? NO . PSYCHIATRIC: DO YOU HAVE THOUGHTS OF HURTING YOURSELF OR SOMEONE ELSE? NO . ARE YOU ABUSED, NEGLECTED, OR IN AN UNSAFE ENVIRONMENT? NO . ENDOCRINOLOGY: ARE YOU DIABETIC? NO . OTHER: DO YOU NEED ANY PRESCRIPTIONS? NO . IF YES, PLEASE LIST: ____ . ANY NEW PROBLEMS WITH YOUR MEDICATIONS? NO . WHEN DID YOU LAST EAT? 06/03/191999 . WHEN DID YOU LAST DRINK? 06/03/192299 . WHAT DID YOU LAST DRINK? WATER . NAME OF PERSON DRIVING YOU HOME? ERMELINDA . DO YOU HAVE ANY OTHER QUESTIONS OR CONCERNS NO . VITAL SIGNS WT 196.4 LBS, HT 54 IN, BMI 47.35 INDEX, BP 125/59 MM HG, HR 74 /MIN, RR 18 /MIN, TEMP 97.2 F, OXYGEN SAT % 97%, NA INITIALS SC 11:24, REVIEWED BY: EM. ASSESSMENTS SPONDYLOSIS WITHOUT MYELOPATHY OR RADICULOPATHY, LUMBAR REGION - M47.816 (PRIMARY) SPONDYLOSIS WITHOUT MYELOPATHY OR RADICULOPATHY, LUMBOSACRAL REGION - M47.817 PROCEDURES PN LUMBAR FACET BLOCK THERAPEUTIC PRE PROCEDURE DIAGNOSIS LUMBAR SPONDYLOSIS, LUMBOSACRAL SPONDYLOSIS POST PROCEDURE DIAGNOSIS LUMBAR SPONDYLOSIS, LUMBOSACRAL SPONDYLOSIS PROCEDURE BILATERAL L4-L5 AND L5-S1 LUMBAR FACET THERAPEUTIC BLOCK SURGEON DR. PAGE NEWSOME IRON MELTER NONE ANESTHESIA LOCAL PRE PROCEDURE NOTE THE PATIENT HAS A HISTORY OF CHRONIC LOW BACK PAIN. I EVALUATED THE PATIENT AND REVIEWED THE CHART. I WENT OVER THE RISKS, ALTERNATIVES, AND BENEFITS ASSOCIATED WITH THIS PROCEDURE. THE PATIENT WOULD LIKE TO PROCEED AND GIVES CONSENT TO PERFORM THE PROCEDURE. THE PATIENT DENIES UNEXPLAINABLE WEIGHT LOSS, FEVER, CHILLS, OR NEW CHANGES IN URINARY OR BOWEL CONTROL DESCRIPTION OF PROCEDURE THE PATIENT WAS BROUGHT TO THE PROCEDURE ROOM AND PLACED IN THE PRONE POSITION. THE LUMBOSACRAL AREA WAS CLEANED WITH CHLORAPREP SOLUTION AND DRAPED ASEPTICALLY. THE PROCEDURE WAS DONE UNDER STERILE CONDITIONS. I CHECKED LATERALITY AND THE LEVEL WHERE THE PROCEDURE WAS GOING TO BE PERFORMED WITH THE PATIENT AND THE SUPPORTING STAFF AT THE MOMENT OF THE TIME OUT IN THE PROCEDURE ROOM. UNDER FLUOROSCOPIC GUIDANCE, THE TARGET POINT WAS SELECTED AT THE RIGHT AND LEFT L4-L5 AND RIGHT AND LEFT L5-S1 FACET JOINTS. TARGET POINT WAS SELECTED AFTER LATERAL ROTATION AND TILT OF THE MAGNIFIER OF THE C-ARM. LIDOCAINE 0.5% WAS USED TO NUMB THE SKIN AND THE SUBCUTANEOUS TISSUE BELOW IT. SPINAL NEEDLES, 22-GAUGE, WERE ADVANCED UNDER FLUOROSCOPIC GUIDANCE AND FOLLOWING PATIENT FEEDBACK UNTIL THE TARGETS WERE TOUCHED. THE POSITION OF THE NEEDLES WAS VERIFIED WITH AP AND LATERAL VIEWS. AFTER PROPER POSITION OF THE NEEDLES WAS ACHIEVED, ISOVUE-M DYE 30% 0.1 ML WAS INJECTED SHOWING ADEQUATE SPREAD OF THE DYE. THEN A SOLUTION OF 1.9 ML OF BUPIVACAINE 0.125% OF KENALOG 10 MG WAS INJECTED AT EACH SITE. THERE WAS NO EVIDENCE OF BLOOD, PARESTHESIA OR CEREBROSPINAL FLUID DURING THE PROCEDURE. THE PATIENT WAS SENT TO THE RECOVERY ROOM. THE PATIENT WAS MOVING THE EXTREMITIES AND DOING WELL. THERE WAS NO COMPLICATION DURING THE PROCEDURE. FLUOROSCOPY TIME WAS 19 SECONDS POST PROCEDURE NOTE THE PATIENT WILL BE SEEN IN A FOLLOW UP IN THE NEXT FEW WEEKS. INSTRUCTIONS WERE GIVEN, QUESTIONS WERE ANSWERED, AND THE PATIENT EXPRESSED UNDERSTANDING AND AGREES WITH THE PLAN. I, PREET MERCEDES, DOCUMENTED THE ABOVE INFORMATION ACTING A SCRIBE FOR DR. NEWSOME. I HAVE REVIEWED THE ABOVE DOCUMENT, WRITTEN BY PREET MERCEDES SCRIBStefanie AND I VERIFY THAT IT IS ACCURATE. PROCEDURE CODES 34880 INJ PARAVERT F JNT L/S 1 LEV, MODIFIERS: 50 [id number] INJ PARAVERT F JNT L/S 2 LEV, MODIFIERS: 50 [id number] RADXPS IN END [id number] PXD DISPOSITION & COMMUNICATION FOLLOW UP 3 WEEKS ELECTRONICALLY SIGNED BY PAGE NEWSOME MD, MD ON 06/11/2019 AT 03:17 PM EST DISCLAIMER : THIS IS A VISIT SUMMARY EXTRACTED FROM THE [employer] CHART. IT IS NOT A COPY OF THE [employer] PROGRESS NOTE. MTDD
== END ==
LOC: M PAIN 11:00
PROVIDERS: ATTEND Anesthesiology
DX: M47.816 Spondylosis without myelopathy or radiculopathy, lumbar region (principal); M47.817 Spondylosis without myelopathy or radiculopathy, lumbosacral region
CPT/HCPCS: 64493; 64494; J3301; Q9967

== ENCOUNTER → 2019-07-01 | Outpatient (CLI) | payer BC, OTHER ==
[~2019-07-01] MED LIST changes: -BUPIVACAINE HCL 0.25% 30 ML VIAL As Ordered ONE; -ISOVUE-M 300 61% 15ML VIAL (Q9967) As Ordered ONE; -LIDOCAINE 1% SDV INJ 30 ML VIAL As Ordered ONE; -TRIAMCINOLONE ACETONIDE SUSP 40 MG/ML VIAL (J3301) As Ordered ONE; -diazePAM 5 MG TAB As Ordered ONE
--- NOTE | 2019-07-12 01:41 | ECWPNPC ---
PATIENT NAME: MADELEINE PERDUE : 1960 GENDER: FEMALE VISIT DATE: 07/01/2019 DISCHARGE DATE: 07/01/19 1147 VISIT LOCKED DATE TIME: PHYSICIAN: SUGAR CROFT RESOURCE: SUGAR CROFT REASON FOR APPOINTMENT 1. POST PROC HISTORY OF PRESENT ILLNESS HISTORY OF PRESENT ILLNESS: HERE FOR POST PROCEDURE F/U.HAD BILAT. L5/S1 LFBT ON 06/04/19.REPORTING LESS FREQUENT AND LESS INTENSE EPISODES OF LOW BACK PAIN SINCE PROCEDURE.HAD A DIFFICULT TIME TOLERATING PROCEDURE.CHIEF AREA OF PAIN IS CENTRAL LOW BACK WITH RADIATION INTO RIGHT POSTERIOR THIGH. PAIN THE PATIENT DESCRIBES THE PAIN... FALL RISK SCREENING: SCREENING :NO FALLS REPORTED IN THE LAST YEAR CURRENT MEDICATIONS TAKING ZOLOFT 100 MG TABLET 1 TABLET ORALLY ONCE A DAY TAKING ZOLOFT 50 MG TABLET 1 TABLET ORALLY ONCE A DAY TAKING IBUPROFEN 800 MG TABLET 1 TABLET WITH FOOD OR MILK NEEDED ORALLY THREE TIMES A DAY TAKING LORAZEPAM 1 MG TABLET 1 TABLET ORALLY EVERY 12 HOURS NEEDED TAKING RIZATRIPTAN BENZOATE 10 MG TABLET 1 TABLET NEEDED ONE TIME ORALLY AT ONSET OF MIGRAINE MAY REPEAT IN 2 HOURS TAKING ROSUVASTATIN CALCIUM 20 MG TABLET 1 TABLET ORALLY ONCE A DAY TAKING ADDERALL XR 30 MG CAPSULE EXTENDED RELEASE 24 HOUR 1 CAPSULE IN THE MORNING ORALLY ONCE A DAY TAKING EXCEDRIN MIGRAINE 250-250-65 MG TABLET 2 TABLETS ORALLY AT ONSET ON MIGRAINES WITH RIZATRIPTAN TAKING MAY HAVE - - CBD OIL DIRECTED TAKING VERAPAMIL HCL ER 180 MG TABLET EXTENDED RELEASE 1 TABLET ORALLY ONCE A DAY TAKING METHOCARBAMOL 750 MG TABLET 1 TABLET ORALLY BID, NOTES: NEEDED - OUT RIGHT NOW TAKING ZONISAMIDE 100 MG CAPSULE 1 CAPSULE ORALLY TWICE A DAY TAKING PLAQUENIL 200 MG TABLET 2 TABLETS WITH FOOD OR MILK ORALLY ONCE A DAY NOT-TAKING BUPROPION HCL ER (SR) 150 MG TABLET EXTENDED RELEASE 12 HOUR 1 TABLET IN THE MORNING ORALLY ONCE A DAY NOT-TAKING DOXYCYCLINE MONOHYDRATE 100 MG TABLET 1 TABLET ORALLY BID X 10 DAYS MEDICATION LIST REVIEWED AND RECONCILED WITH THE PATIENT PAST MEDICAL HISTORY MIGRAINE HEADACHES BACK AND NECK PAIN BILATERAL SHOULDER PAIN- RIGHT GREATER WITH ARM PAIN 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 AND 2013 LEFT CARPAL TUNNEL RELEASE - SOS 11/2018 RIGHT CARPAL TUNNEL RELEASE - SOS 12/2018 FAMILY HISTORY FATHER: 63 YRS, COPD ASTHMA CHF, DIAGNOSED WITH OTHER SPECIFIED CONDITIONS INFLUENCING HEALTH STATUS MOTHER: , MULTIPLE MYLOMA, DIABETES, HYPERTENSION, OTHER MALIGNANT NEOPLASM OF UNSPECIFIED SITE SIBLINGS: , BOTH OF OH'S BROTHER-LIVING -PROSTATE CA, HYPERTENSION, HIGH CHOLESTEROL SISTERS-LIVING- HIGH CHOLESTEROL, HYPERTENSION DAUGHTER(S): ALIVE, ONE DAUGHTER- COLON CA, OTHER MALIGNANT NEOPLASM OF UNSPECIFIED SITE 3DAUGHTER(S) . SOCIAL HISTORY GENERAL: TOBACCO USE ARE YOU A:FORMER SMOKER HOW LONG HAS IT BEEN SINCE YOU LAST SMOKED?> 10 YEARS EDUCATION LEVEL OF EDUCATION:NOT FINISHED COLLEGE LANGUAGE LANGUAGES SPOKEN:BELARUSIAN DOMESTIC VIOLENCE DO YOU FEEL SAFE IN YOUR ENVIRONMENT?YES RECREATIONAL DRUG USE DRUG USE?NO LEARNING BARRIERS / SPECIAL NEEDS BARRIERS TO LEARNING?YES COMMENTS DOESN'T REMEMBER THINGS AFTER SHE READS IT HEARING IMPAIRED?YES VISION IMPAIRED?YES COGNITIVELY IMPAIRED?NO : TERRILBLE RINGING IN HER EARS THAT CONTINUES TO GET LOUDER :CORRECTIVE LENSES READINESS TO LEARN?YES LEARNING PREFERENCES?YES :DEMONSTRATION/VERBAL INSTRUCTION LEARNING CAPABILITIES PRESENT?YES EMOTIONAL BARRIERS?NO SPECIAL DEVICES?NO MUSICAL INSTRUMENT MECHANIC NEEDED?NO PAIN CLINIC PFS, CLERGY, PUBLIC HEALTH REFERRALS PFS REFERRAL NEEDED?NO CLERGY REFERRAL NEEDED?NO PUBLIC HEALTH REFERRAL NEEDED?NO WAS THE PROVIDER NOTIFIED OF ANY PERTINENT INFO?YES N/A HAS THE PATIENT BEEN EDUCATED REGARDING HIS/HER PLAN OF CARE?YES HAS THE PATIENT BEEN EDUCATED REGARDING PAIN, THE RISK FOR PAIN, THE IMPORTANCE OF EFFECTIVE PAIN MANAGEMENT, AND THE PAIN ASSESSMENT PROCESS?YES LATEX QUESTIONNAIRE LATEX ALLERGY : HAVE YOU EVER DEVELOPED ANY TYPE OF REACTION AFTER HANDLING LATEX PRODUCTS SUCH RUBBER GLOVES, CONDOMS, DIAPHRAGMS, BALLOONS, SOCKS, OR UNDERWEAR?NO LATEX ALLERGY : HAVE YOU EVER DEVELOPED ANY TYPE OF REACTION DURING OR AFTER DENTAL APPOINTMENT, VAGINAL/RECTAL EXAMINATION, SURGICAL PROCEDURE, OR ANY OTHER EXPOSURE?NO LATEX RISK : HAVE YOU EVER HAD ANY DIFFICULTY BREATHING OR HIVES AFTER EATING OR HANDLING ANY FRUITS, OR VEGETABLES; SUCH KIWI, BANANAS, STONE FRUITS, OR CHESTNUTSNO LATEX RISK : DO YOU HAVE A PREVIOUS PERSONAL HISTORY OF MORE THAN NINE SURGERIES, SPINA BIFIDA, OR REPEATED CATHERIZATIONS? NO LATEX RISK : ARE YOU FREQUENTLY EXPOSED TO LATEX PRODUCTS IN YOUR OCCUPATION?NO DATE ASKED : 11/20/2018 CAFFEINE CAFFEINE USE?YES HOW OFTEN AND HOW MUCH? 1 CUP COFFEE/DAY ADVANCE DIRECTIVE ADVANCE DIRECTIVE DISCUSSED WITH PATIENT:YES 07/01/19 PATIENT RECEIVED HCP INFORMATION LAST VISIT, HAS NOT FILLED OUT YET, DECLINED ASSISTANCE IN FILLING OUT THE FORM. JS NONDENOMINATIONAL [id number] [place] ALCOHOL SCREENING DID YOU HAVE A DRINK CONTAINING ALCOHOL IN THE PAST YEAR?NO POINTS0 INTERPRETATIONNEGATIVE OCCUPATION: WORKS AT [employer]. REVIEWED WITH PATIENT 11/20/18 1435 BVREVIEWED WITH PATIENT 02/12/19 0951 JSREVIEWED WITH PATIENT 03/20/19 1222 NLJREVIEWED WITH PATIENT 07/01/19 1035 JS. HOSPITALIZATION/MAJOR DIAGNOSTIC PROCEDURE CHILD SURGERY REVIEW OF SYSTEMS REVIEWED BY: PROVIDER: SUGAR GUTIERREZ . CONSTITUTIONAL: ANY CHANGE IN YOUR MEDICAL CONDITION? NO . CHILLS NO . FEVER NO . INFECTION: DO YOU HAVE NEW INFECTIONS? NO . DO YOU HAVE HISTORY OF MRSA? NO . MUSCULOSKELETAL: ANY NEW PATTERNS OF PAIN OR NUMBNESS? YES, STATES THE PAIN VARIES EVERYDAY . GASTROENTEROLOGY: ANY NEW CHANGE IN BOWEL CONTROL? NO . GENITOURINARY: ANY NEW CHANGE IN BLADDER CONTROL? NO . IS THERE A CHANCE YOU COULD BE ? NO . HEMATOLOGY/LYMPH: DO YOU TAKE ANY BLOOD THINNERS? (FOR EXAMPLE- COUMADIN, PLAVIX, AGGRENOX, PLATEL, PRADAXA, OR XARELTO) NO . WHEN WAS YOUR LAST DOSE? DATE: TIME: . NEUROLOGY: HAVE YOU FALLEN IN THE PAST 12 MONTHS? YES, STATES FALLS ON A REGULAR BASIS, LOSES BALANCE WHEN BENDING FORWARD OFTEN - NO MAJOR INURIES, NO ED VISIT . ANY NEW EXTREMITY NUMBNESS OR WEAKNESS? NO . CARDIOLOGY: DO YOU HAVE A PACEMAKER OR DEFIBRILLATOR? NO . RESPIRATORY: HAVE YOU BEEN SICK IN THE PAST WEEK? YES, SINUS INFECTION - IMPROVED SOME . FEVER NO . FLU LIKE SYMPTOMS? NO . COUGH NO . INTEGUMENTARY: DO YOU HAVE ANY RASHES OR OPEN SORES? NO . ALLERGIC/IMMUNO: ARE YOU ALLERGIC TO IV DYE? NO . ANY NEW ALLERGIES? NO . PSYCHIATRIC: DO YOU HAVE THOUGHTS OF HURTING YOURSELF OR SOMEONE ELSE? NO . ARE YOU ABUSED, NEGLECTED, OR IN AN UNSAFE ENVIRONMENT? NO . ENDOCRINOLOGY: ARE YOU DIABETIC? NO . OTHER: DO YOU NEED ANY PRESCRIPTIONS? NO . IF YES, PLEASE LIST: ____ . ANY NEW PROBLEMS WITH YOUR MEDICATIONS? NO . WHEN DID YOU LAST EAT? ____ . WHEN DID YOU LAST DRINK? ____ . WHAT DID YOU LAST DRINK? ____ . NAME OF PERSON DRIVING YOU HOME? ____ . DO YOU HAVE ANY OTHER QUESTIONS OR CONCERNS NO . VITAL SIGNS WT 197.0 LBS, HT 54 IN, BMI 47.49 INDEX, BP 140/66 MM HG, HR 84 /MIN, RR 18 /MIN, TEMP 96.7 F, OXYGEN SAT % 97%, SAFE IN ENV? (Y/N) YES, NA INITIALS AW 1025, REVIEWED BY: SUPA. EXAMINATION GENERAL EXAMINATION: GENERAL ALERT,NO DISTRESS . PSYCH AFFECT NORMAL . LUNGS: LUNG SOUNDS ARE CLEAR . HEART: HEART RATE REGULAR . MUSCULOSKELETAL: MST 5/5 BILAT. LOWER EXTREMITIES . FOR BILAT. SIJ TENDERNESS BILAT. SIJ . 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 PROCEDURE CODES FA211 ESTABILISHED PATIENT [facility] FACILITY CHARGE DISPOSITION & COMMUNICATION FOLLOW UP 6-8WKS (REASON: PT 2XWK X 6WKS-CHRONIC LBP/LUMBAR FACET ARTHROPATHY/BILAT SACROILLITIS) ELECTRONICALLY SIGNED BY MATT MUELLER ON 07/11/2019 AT 03:44 PM EST DISCLAIMER : THIS IS A VISIT SUMMARY EXTRACTED FROM THE [employer] CHART. IT IS NOT A COPY OF THE [employer] PROGRESS NOTE. SHERYL
== END ==
LOC: M PAIN 10:15
PROVIDERS: ATTEND Nurse Practitioner Family
DX: M46.1 Sacroiliitis, not elsewhere classified (principal); G43.909 Migraine, unspecified, not intractable, without status migrainosus; E78.5 Hyperlipidemia, unspecified; G47.33 Obstructive sleep apnea (adult) (pediatric); Z87.891 Personal history of nicotine dependence; Z88.0 Allergy status to penicillin; Z88.6 Allergy status to analgesic agent; Z91.81 History of falling; E66.01 Morbid (severe) obesity due to excess calories; Z68.42 Body mass index [BMI] 45.0-49.9, adult; Z79.899 Other long term (current) drug therapy

== ENCOUNTER → 2019-09-23 | Outpatient (CLI) | payer BC, OTHER ==
[~2019-09-23] MED LIST changes: -LORA1TAB12 PO; +LORA1TAB4 PO
--- NOTE | 2019-09-23 15:58 | REP ---
CHEST, TWO VIEWS: COMPARISON: 08/07/2015. There is no evidence of acute infiltrate. There is mild lingular scarring which is unchanged. Heart is not enlarged. There is mild calcification and tortuosity of the thoracic aorta. Mediastinal silhouette is unchanged. There are degenerative changes of the spine with mild curvature toward the right. IMPRESSION: Stable chronic findings without evidence of acute infiltrate. Electronically Signed by Yon Monzon MD 09/24/2019 07:47 P
== END ==
LOC: M WUC 14:26
PROVIDERS: ATTEND Nurse Practitioner
DX: J06.9 Acute upper respiratory infection, unspecified (principal)

== ENCOUNTER → 2019-12-12 | Outpatient (CLI) | payer BC, OTHER ==
--- NOTE | 2020-01-02 17:30 | REP ---
Note: Examination was made available for dictation on 01/01/2020. Clinical: Pelvic groin pain. Technique: Axial noncontrast images through the pelvis with coronal and sagittal re-formations. Findings: Visualized portions of the small and large bowel including cecum and terminal ileum appear relatively normal. Evidence for scattered colonic and sigmoid diverticulosis noted without acute diverticulitis. Bladder is unremarkable. Uterus / adnexa are essentially age-appropriate although mild myomatous changes cannot definitively be excluded. Small calcifications in the pelvis compatible with phleboliths noted. No ascites. No free air. No adenopathy. Visualized abdominal aorta and vasculature demonstrate mild atherosclerotic changes. Musculoskeletal structures demonstrate age-related degenerative changes without acute osseous abnormality. No obvious hernia. Impression: 1. Scattered colonic and sigmoid diverticula without acute diverticulitis. 2. Cannot exclude subtle myomatous changes to the uterus. 3. Otherwise unremarkable noncontrast CT of the pelvis. Electronically Signed by Tommy Sanchez MD 01/02/2020 05:22 P
== END ==
LOC: M RAD 11:04
PROVIDERS: ATTEND Psychiatry & Neurology Neurology
DX: R10.2 Pelvic and perineal pain (principal); K57.30 Diverticulosis of large intestine without perforation or abscess without bleeding

== ENCOUNTER → 2020-01-10 | Outpatient (CLI) | payer BC, OTHER ==
[~2020-01-10] MED LIST changes: +CRES20TA2 PO; +DICL50TAB PO; +OMEP-218 PO; +VERA180C PO; +ZOLO100T PO
--- NOTE | 2020-01-11 07:45 | REP ---
REASON FOR EXAM: Followup. All priors reviewed, latest 12/07/2018. The mediastinum and pulmonary mary jane are unchanged. There is no mass or adenopathy. There are no pleural or pericardial effusions. There is no change in the imaged upper abdomen or imaged osseous structures. Evaluation of the lung curtis shows an unchanged right upper lobe ground-glass nodule. There are stable right middle lobe nodules, the largest measures 6 mm. There are no new abnormal nodules, masses, or opacities. IMPRESSION: Stable CT examination of the chest. There are no new abnormal nodules or other abnormalities. Electronically Signed by Giuseppe Bailey DO 01/13/2020 07:43 A
== END ==
LOC: M RAD 15:54
PROVIDERS: ATTEND Internal Medicine Pulmonary Disease
DX: R91.8 Other nonspecific abnormal finding of lung field (principal)

== ENCOUNTER → 2020-08-23 | Outpatient (CLI) | payer BC, OTHER | LOC: M LABSMTC 09:35 | PROVIDERS: ATTEND Anesthesiology | DX: Z01.812 Encounter for preprocedural laboratory examination (principal); Z20.822 Contact with and (suspected) exposure to COVID-19 ==

== ENCOUNTER 2020-08-28 07:00 | Day surgery (SDC) | payer BC, OTHER ==
[~2020-08-28] VITALS: Ht 165.1 cm; Wt 87.5 kg
[~2020-08-28 07:00] MED LIST changes: +NS 1,000 ML IV ONE
[2020-08-28] MEDS ORDERED: LIDOCAINE 2% 100MG/5ML SDV (FOR ANES.) As Ordered ONE (07:08)
[2020-08-28] MEDS ORDERED: propofoL 500 MG/50 ML VIAL As Ordered ONE (07:08)
--- NOTE | 2020-08-28 07:56 | ROOR ---
Patient Name: Madelaine Pedro Procedure Date: 08/28/2020 7:38 AM Date of : 1960 Age: 59 Room: [facility] Gender: Female Note Status: Finalized Procedure: Upper Endoscopy + Biopsies Indications: Heartburn, Exclusion of Mancera's esophagus Providers: Benitez Fragoso MD Referring MD: YAYO WATKINS Requesting Provider: Medicines: Monitored Anesthesia Care Complications: No immediate complications. Procedure: Pre-Anesthesia Assessment: - The heart rate, respiratory rate, oxygen saturations, blood pressure, adequacy of pulmonary ventilation, and response to care were monitored throughout the procedure. The Endoscope was introduced through the mouth, and advanced to the second part of duodenum. The upper GI endoscopy was accomplished without difficulty. The patient tolerated the procedure well. Findings: The Z-line was regular and was found 40 cm from the incisors. Multiple biopsies were obtained with cold forceps for evaluation to rule out Mancera's Esophagus randomly at the gastroesophageal junction. No other significant abnormalities were identified in a careful examination of the stomach. The exam of the duodenum was otherwise normal. Impression: - Z-line regular, 40 cm from the incisors. - Multiple biopsies were obtained at the gastroesophageal junction. - The examination was otherwise normal. Recommendation: - Patient has a contact number available for emergencies. The signs and symptoms of potential delayed complications were discussed with the patient. Return to normal activities tomorrow. Written discharge instructions were provided to the patient. - High fiber diet. - Discharge patient to home. - Follow an antireflux regimen. - Continue present medications. - Await pathology results. - Telephone GI clinic for pathology results in 1 week. - Return to referring physician. - The findings and recommendations were discussed with the patient. Procedure Code(s): --- Professional --- 11860, Esophagogastroduodenoscopy, flexible, transoral; with biopsy, single or multiple Diagnosis Code(s): --- Professional --- R12, Heartburn CPT copyright 2019 [employer]. All rights reserved. The codes documented in this report are preliminary and upon microeconomics professor review may be revised to meet current compliance requirements. Benitez Fragoso MD Benitez Fragoso MD 08/28/2020 7:55:57 AM Electronically signed by Benitez Fragoso MD Number of Addenda: 0 Note Initiated On: 08/28/2020 7:38 AM Estimated Blood Loss: Estimated blood loss: none.
--- NOTE | 2020-08-28 08:15 | ROOR ---
Patient Name: Madelaine Pedro Procedure Date: 08/28/2020 7:39 AM Date of : 1960 Age: 59 Room: [facility] Gender: Female Note Status: Finalized Procedure: Total Colonoscopy to Cecum + Biopsy Polypectomy Indications: Screening in patient at increased risk: Colorectal cancer in child before age 60 Providers: Benitez Fragoso MD Referring MD: YAYO WATKINS Requesting Provider: Medicines: Monitored Anesthesia Care Complications: No immediate complications. Procedure: Pre-Anesthesia Assessment: - The heart rate, respiratory rate, oxygen saturations, blood pressure, adequacy of pulmonary ventilation, and response to care were monitored throughout the procedure. The Colonoscope was introduced through the anus and advanced to the cecum, identified by appendiceal orifice and ileocecal valve. The colonoscopy was performed without difficulty. The patient tolerated the procedure well. The quality of the bowel preparation was excellent. Findings: The perianal and digital rectal examinations were normal. Non-bleeding internal hemorrhoids were found during retroflexion. The hemorrhoids were small and Grade I (internal hemorrhoids that do not prolapse). Multiple small and large-mouthed diverticula were found in the recto-sigmoid colon, sigmoid colon and descending colon. A small polyp was found at 20 cm proximal to the anus. The polyp was sessile. The polyp was removed with a cold biopsy forceps. Resection and retrieval were complete. The exam was otherwise without abnormality on direct and retroflexion views. Impression: - Non-bleeding internal hemorrhoids. - Diverticulosis in the recto-sigmoid colon, in the sigmoid colon and in the descending colon. - One small polyp at 20 cm proximal to the anus, removed with a cold biopsy forceps. Resected and retrieved. - The examination was otherwise normal on direct and retroflexion views. - The exam was otherwise normal to the cecum. Recommendation: - Patient has a contact number available for emergencies. The signs and symptoms of potential delayed complications were discussed with the patient. Return to normal activities tomorrow. Written discharge instructions were provided to the patient. - High fiber diet. - Discharge patient to home. - Continue present medications. - Await pathology results. - Telephone GI clinic for pathology results in 1 week. - Repeat colonoscopy in 5 years for screening purposes. - Return to referring physician. - The findings and recommendations were discussed with the patient. Procedure Code(s): --- Professional --- 92129, Colonoscopy, flexible; with biopsy, single or multiple Diagnosis Code(s): --- Professional --- Z80.0, Family history of malignant neoplasm of digestive organs K64.0, First degree hemorrhoids K63.5, Polyp of colon K57.30, Diverticulosis of large intestine without perforation or abscess without bleeding CPT copyright 2019 [employer]. All rights reserved. The codes documented in this report are preliminary and upon child & adolescent psychiatrist review may be revised to meet current compliance requirements. Benitez Fragoso MD Benitez Fragoso MD 08/28/2020 8:14:35 AM Electronically signed by Benitez Fragoso MD Number of Addenda: 0 Note Initiated On: 08/28/2020 7:39 AM Estimated Blood Loss: Estimated blood loss: none.
[2020-08-28 08:40] VITALS: BP 138/83
== END 2020-08-28 08:44 | disposition home or self-care (01) ==
LOC: M OPP 07:00
PROVIDERS: ATTEND Internal Medicine Gastroenterology
DX: Z12.11 Encounter for screening for malignant neoplasm of colon (principal); Z80.0 Family history of malignant neoplasm of digestive organs; R12 Heartburn; D12.6 Benign neoplasm of colon, unspecified; K64.0 First degree hemorrhoids; K57.30 Diverticulosis of large intestine without perforation or abscess without bleeding; D13.1 Benign neoplasm of stomach; I10 Essential (primary) hypertension; E78.5 Hyperlipidemia, unspecified; M19.90 Unspecified osteoarthritis, unspecified site; M32.9 Systemic lupus erythematosus, unspecified; F41.9 Anxiety disorder, unspecified; F32.9 Major depressive disorder, single episode, unspecified; G43.909 Migraine, unspecified, not intractable, without status migrainosus; J45.909 Unspecified asthma, uncomplicated; G47.30 Sleep apnea, unspecified; Z87.891 Personal history of nicotine dependence; Z88.0 Allergy status to penicillin; Z88.6 Allergy status to analgesic agent; Z79.899 Other long term (current) drug therapy

== ENCOUNTER → 2020-11-02 | Outpatient (CLI) | payer BC, OTHER ==
[~2020-11-02] MED LIST changes: -NS 1,000 ML IV ONE
--- NOTE | 2020-11-02 16:16 | REP ---
INDICATION: SPONDYLOSIS W/O MYELOPATHY OR RADICULOPATHY, CERVICAL REGION. COMPARISON: None. TECHNIQUE: Plain films of the cervical spine includes sagittal AP and odontoid views. FINDINGS: There is evidence of interbody fusion C5-C6 levels. No malalignments. No definite evidence of hardware loosening or hardware failure. No fracture. Prevertebral soft tissues appear somewhat thickened at the level of the fusion however the airway remains widely patent. We have no comparative studies. IMPRESSION: No evidence of fracture or malalignment. No evidence of hardware failure. Prevertebral soft tissues appear somewhat thickened at the level of the fusion. If symptoms warrant, CT scan or MRI recommended for further evaluation.. <Electronically signed by Star Rae > 11/02/20 [id number]
== END ==
LOC: M RAD 15:39
PROVIDERS: ATTEND Neurological Surgery
DX: M47.812 Spondylosis without myelopathy or radiculopathy, cervical region (principal)

== ENCOUNTER → 2020-11-20 | Outpatient (CLI) | payer BC, OTHER ==
--- NOTE | 2020-11-20 13:02 | REP ---
INDICATION: PAIN AND ROM LIMITATION COMPARISON: 01/14/2008 TECHNIQUE: Five views FINDINGS: Mature tunnel defects are seen 1 in the distal femur and the other in the proximal tibia secondary to previous ACL reconstruction. There is tricompartmental marginal osteophytosis which has developed since the last exam. There is mild patellofemoral joint space narrowing and medial compartmental narrowing. There is no acute fracture, dislocation, or subluxation. IMPRESSION: Chronic changes as described above. <Electronically signed by Giuseppe Bailey > 11/20/20 [id number]
== END ==
LOC: M WUC 11:48
PROVIDERS: ATTEND Physician Assistant
DX: M25.561 Pain in right knee (principal)

== ENCOUNTER → 2021-01-29 | Outpatient (CLI) | payer BC, OTHER ==
[~2021-01-29] MED LIST changes: +OMEP40CA4 PO; -OMEP40CA97 PO
--- NOTE | 2021-01-29 17:06 | REP ---
INDICATION: SPONDYLOSIS W/O MYELOPATHY OR RADICULOPATHY, CERVICAL REGION. COMPARISON: 11/02/2020 TECHNIQUE: AP, lateral, swimmer's and open mouth views of the cervical spine FINDINGS: Examination remains stable. Anterior fixation at C5-6 along with moderate to advanced multilevel degenerative changes are again noted and unchanged. No acute fracture/compression injury or subluxation. IMPRESSION: Degenerative and postsurgical changes remains stable. <Electronically signed by Tommy Sanchez > 01/29/21 [id number]
== END ==
LOC: M RAD 16:37
PROVIDERS: ATTEND Neurological Surgery
DX: M47.812 Spondylosis without myelopathy or radiculopathy, cervical region (principal)

== ENCOUNTER → 2021-05-05 | Outpatient (REF) ==
--- NOTE | 2021-05-05 15:17 | REP ---
INDICATION: PAIN. COMPARISON: 03/02/2012 TECHNIQUE: Four views. FINDINGS: Vertebral body height and alignment has not changed significantly. Once again, there is a grade 1 L4 upon L5 spondylolisthesis status quo. Degenerative facet joint changes are again seen bilaterally at all levels status quo. There is a levoconvex lumbar curve which is essentially unchanged. There is disc space narrowing at every level which appears stable. IMPRESSION: No significant change compared to the prior exam with findings as described above. <Electronically signed by Giuseppe Bailey > 05/05/21 [id number]
== END ==
LOC: M PLAIMG 13:33
PROVIDERS: ATTEND Internal Medicine
DX: M43.16 Spondylolisthesis, lumbar region (principal)

== ENCOUNTER 2021-06-28 12:57 | Outpatient (CLI) | payer BC, OTHER ==
[~2021-06-28] VITALS: Ht 162.6 cm; Wt 86.2 kg
[~2021-06-28 12:57] MED LIST changes: +ALBUTEROL 90 MCG/ACT 8GM HFA INHALER INH PRN; +ALBUTEROL SULFATE 2.5 MG/0.5 ML INH NEB SOLN INH PRN; +EPINEPHrine INJ 1 MG/ML 1ML AMP IM PRN; +NS 1,000 ML IV SCH; +diphenhydrAMINE 50MG/ML VIAL (J1200) IV PRN; +methylPREDNISolone 125MG 2ML VIAL IV PRN
[2021-06-28 13:32] VITALS: BP 137/67
[2021-06-28] MEDS ORDERED: CASIRIVIMAB (REGN10933) 600 MG, IMDEVIMAB (REGN10987) 600 MG in NS 250 ML IV ONE (14:00)
[2021-06-28] MEDS ORDERED: ACETAMINOPHEN TAB 650MG DOSE (2X325MG) PO ONE (14:00)
[2021-06-28 14:02] VITALS: BP 123/62
[2021-06-28 14:32] VITALS: BP 116/69
[2021-06-28 15:32] VITALS: BP 140/67
== END 2021-06-28 15:32 | disposition home or self-care (01) ==
LOC: M OPCLI4PR 12:57
PROVIDERS: ATTEND Physician Assistant
DX: U07.1 COVID-19 (principal); Z88.0 Allergy status to penicillin; Z88.8 Allergy status to other drugs, medicaments and biological substances

== ENCOUNTER → 2021-07-29 | Outpatient (CLI) | payer BC, OTHER ==
[~2021-07-29] MED LIST changes: -ALBUTEROL 90 MCG/ACT 8GM HFA INHALER INH PRN; -ALBUTEROL SULFATE 2.5 MG/0.5 ML INH NEB SOLN INH PRN; -EPINEPHrine INJ 1 MG/ML 1ML AMP IM PRN; -NS 1,000 ML IV SCH; -diphenhydrAMINE 50MG/ML VIAL (J1200) IV PRN; -methylPREDNISolone 125MG 2ML VIAL IV PRN
== END ==
LOC: M RAD 12:41
PROVIDERS: ATTEND Neurological Surgery
DX: M47.812 Spondylosis without myelopathy or radiculopathy, cervical region (principal)

== ENCOUNTER → 2022-01-11 | Outpatient (CLI) | payer BC, OTHER ==
[~2022-01-11] MED LIST changes: +OMEP-173 PO; -OMEP-218 PO
== END ==
LOC: M WUC 11:51
PROVIDERS: ATTEND Psychiatry & Neurology Neurology
DX: M85.811 Other specified disorders of bone density and structure, right shoulder (principal); M19.019 Primary osteoarthritis, unspecified shoulder

== ENCOUNTER → 2022-06-07 | Outpatient (CLI) | payer BC, OTHER | LOC: M PLAIMG 12:31 | PROVIDERS: ATTEND Physician Assistant Surgical | DX: S82.65XG Nondisplaced fracture of lateral malleolus of left fibula, subsequent encounter for closed fracture with delayed healing (principal) ==

== ENCOUNTER → 2022-06-07 | Outpatient (CLI) | payer BC, OTHER | LOC: M WHC 12:34 | PROVIDERS: ATTEND Physician Assistant Surgical | DX: S82.65XG Nondisplaced fracture of lateral malleolus of left fibula, subsequent encounter for closed fracture with delayed healing (principal); M85.89 Other specified disorders of bone density and structure, multiple sites ==

== ENCOUNTER 2023-09-28 10:26 | Emergency (ER) | payer BC, MEDICARE, OTHER ==
[~2023-09-28] VITALS: Ht 162.6 cm; Wt 88.0 kg
[~2023-09-28 10:26] MED LIST changes: -HYDR200T3 PO; +HYDR200T46 PO; +LORA1TAB23 PO; -LORA1TAB4 PO; -ROSU20TA5 PO; +ROSU20TA61 PO
[2023-09-28] MEDS ORDERED: TRAZ-257 (10:40)
[2023-09-28] MEDS ORDERED: IBUP80TA (10:40)
[2023-09-28 12:38] LABS: BASO # 0.1 10^3/uL (0.0-0.2); BASO % 0.5 % (0.0-1.0); EOS % 0.1 % (0.0-3.0); HEMATOCRIT 45.5 % (36.0-47.0); HEMOGLOBIN 15.5 g/dl (12.0-15.5); LYMPH # 2.3 10^3/uL (1.5-5.0); LYMPH % 17.5 % (24.0-44.0); MEAN CORPUSCULAR HEMOGLOBIN 28.8 pg (27.0-33.0); MEAN CORPUSCULAR HGB CONC 34.1 g/dl (32.0-36.5); MEAN CORPUSCULAR VOLUME 84.6 fl (80.0-96.0); MONO # 0.3 10^3/uL (0.0-0.8); MONO % 2.1 % (2.0-8.0); NEUTROPHILS # 10.2 10^3/uL (1.5-8.5); NEUTROPHILS % 79.5 % (36.0-66.0); PLATELET COUNT, AUTOMATED 329 10^3/uL (150-450); RED BLOOD COUNT 5.38 10^6/uL (4.00-5.40); WHITE BLOOD COUNT 12.8 10^3/uL (4.0-10.0)
[2023-09-28 13:03] LABS: APPEARANCE, URINE CLEAR (CLEAR); BACTERIA, URINE AUTO NEGATIVE (NEGATIVE); BILIRUBIN, URINE AUTO NEGATIVE (NEGATIVE); BLOOD, URINE BLOOD NEGATIVE (NEGATIVE); COLOR, URINE YELLOW (YELLOW); GLUCOSE, URINE (UA) AUTO NEGATIVE (NEGATIVE); KETONE, URINE AUTO 1+ mg/dL (NEGATIVE); LEUKOCYTE ESTERASE, URINE AUTO NEGATIVE (NEGATIVE); MUCUS, URINE SMALL (NEGATIVE); NITRITE, URINE AUTO NEGATIVE (NEGATIVE); PROTEIN, URINE AUTO 2+ mg/dL (NEGATIVE); RBC, URINE AUTO 4 /HPF (0-3); SPECIFIC GRAVITY URINE AUTO 1.014 (1.002-1.035); SQUAMOUS EPITHELIAL CELL UR AU 0 /HPF (0-6); UROBILINOGEN, URINE AUTO 0.2 mg/dL (0.0-2.0); WBC, URINE AUTO 0 /HPF (0-3)
[2023-09-28 13:06] LABS: LIPASE 31 U/L (12-53)
[2023-09-28] MEDS: NS 1,000 ML IV ONE (13:07)
[2023-09-28] MEDS: ONDANSETRON 4MG 2ML VIAL IV ONE (13:07)
[2023-09-28 13:08] LABS: ALBUMIN 4.4 G/DL (3.2-5.2); ALKALINE PHOSPHATASE 124 U/L (46-116); ALT/SGPT 18 U/L (7.0-40); AST/SGOT 12 U/L (<34); BILIRUBIN,DIRECT 0.2 MG/DL (<0.4); BILIRUBIN,TOTAL 0.6 MG/DL (0.3-1.2); BLOOD UREA NITROGEN 11 MG/DL (9-23); CALCIUM LEVEL 9.1 MG/DL (8.3-10.6); CARBON DIOXIDE LEVEL 26 MMOL/L (20-31); CHLORIDE LEVEL 103 MMOL/L (98-107); CREATININE FOR GFR 0.59 MG/DL (0.55-1.30); GLOMERULAR FILTRATION RATE > 60.0 (>45); GLUCOSE, FASTING 150 MG/DL (74-106); MAGNESIUM LEVEL 1.6 MG/DL (1.8-2.4); POTASSIUM SERUM 3.9 MMOL/L (3.5-5.1); SODIUM LEVEL 137 MMOL/L (136-145); TOTAL PROTEIN 7.4 G/DL (5.7-8.2)
[2023-09-28] MEDS: MORPHINE 4 MG/ML 1ML VIAL IV ONE (13:08)
[2023-09-28 13:11] LABS: FREE T4 1.37 NG/DL (0.89-1.76)
[2023-09-28 13:12] LABS: THYROID STIMULATING HORMONE 2.146 uIU/ML (0.55-4.78)
[2023-09-28 13:16] LABS: CK-MB VALUE MASS < 1.0 NG/ML (<3.6)
[2023-09-28 13:20] LABS: CPK CREATINE PHOSPHOKINASE 87 U/L (34-145); MB/CK RELATIVE INDEX 1.14 (< OR =4)
[2023-09-28] MEDS ORDERED: ISOVUE-370 76% 100ML VIAL As Ordered ONE (13:27)
[2023-09-28 13:34] LABS: RSV AMPLIFICATION NEGATIVE (NEGATIVE)
[2023-09-28] MEDS: CLINDAMYCIN 150MG CAPSULE PO ONE (15:03)
[2023-09-28] MEDS: metroNIDAZOLE (FLAGYL) 500MG TABLET PO ONE (15:03)
[2023-09-28] MEDS: KETOROLAC 30 MG/ML 1ML VIAL IV ONE (15:04)
[2023-09-28] MEDS ORDERED: CLEO300C2 PO (16:13)
[2023-09-28] MEDS ORDERED: KETO10TAB PO (16:13)
[2023-09-28] MEDS ORDERED: METR-265 PO (16:13)
[2023-09-28] MEDS ORDERED: REGL10TA6 PO (16:15)
[2023-09-28 16:41] VITALS: BP 172/92; TEMP 97.7; O2SAT 96
== END 2023-09-28 16:40 | disposition home or self-care (01) ==
LOC: M ED 10:26
DX: A09 Infectious gastroenteritis and colitis, unspecified (principal); E66.9 Obesity, unspecified; I10 Essential (primary) hypertension; E78.5 Hyperlipidemia, unspecified; J45.909 Unspecified asthma, uncomplicated; F41.9 Anxiety disorder, unspecified; F32.A Depression, unspecified; G43.909 Migraine, unspecified, not intractable, without status migrainosus; G47.33 Obstructive sleep apnea (adult) (pediatric); K57.30 Diverticulosis of large intestine without perforation or abscess without bleeding; Z79.899 Other long term (current) drug therapy; Z88.0 Allergy status to penicillin; Z88.6 Allergy status to analgesic agent
CPT/HCPCS: 74177; 80048; 80076; 81001; 82550; 82553; 83690; 83735; 84439; 84443; 84484; 85025; 87631; 96361; 96374; 96375; 99284; J1885; J2405; Q9967

== ENCOUNTER → 2024-02-07 | Outpatient (REF) | payer MEDICARE ==
[~2024-02-07] MED LIST changes: +CLEO300C2 PO; +IBUP80TA; +KETO10TAB PO; +METR-265 PO; +REGL10TA6 PO; +TRAZ-257
== END ==
LOC: M SFHCDERM 17:37
PROVIDERS: ATTEND Physician Assistant
DX: L70.0 Acne vulgaris (principal)

== ENCOUNTER → 2024-08-09 | Outpatient (REF) | payer MEDICARE ==
[~2024-08-09] MED LIST changes: -ROSU20TA61 PO; +ROSU20TA86 PO
== END ==
LOC: M LAB REF 13:12
PROVIDERS: ATTEND Plastic Surgery Surgery of the Hand
DX: L72.0 Epidermal cyst (principal)